=== PATIENT | female | born 1955 | race Caucasian/White ===

== ENCOUNTER 2017-01-12 20:25 | Inpatient (IN) | payer OTHER ==
[~2017-01-12] VITALS: Ht 160 cm; Wt 56.5 kg
[2017-01-12] MEDS ORDERED: ALBUT/IPRATROP 3MG/0.5MG NEB 3 ML VIAL INH STA (21:13)
[2017-01-12] MEDS ORDERED: LEVALBUTEROL 1.25MG/0.5ML NEB INH ONE (21:45)
[2017-01-12] MEDS ORDERED: IPRATROPIUM BROMIDE NEB SOLN 0.02% 2.5 ML VIAL INH ONE (21:45)
--- NOTE | 2017-01-12 21:48 | DIAGNOSTIC IMAGING REPORT ---
CHEST ONE VIEW PORTABLE CLINICAL HISTORY: shortness of breath COMPARISON STUDY: No previous studies for comparison. FINDINGS: The cardiac and mediastinal contours are normal. There is no evidence of focal pulmonary consolidation. There is no evidence of failure. No pleural effusions are visualized.[ IMPRESSION: No active disease in the chest. Electronically signed by: Clinton Cook M.D. 01/12/2017 9:46 PM Dictated Date/Time: 01/12/2017 9:46 PM
[2017-01-12 22:00] VITALS: PULSE 119; O2SAT 94
[2017-01-12 22:01] LABS: BASO % 0.4 %; BASO ABS # 0.05 K/uL (0-0.2); COMPLETE YES; HEMATOCRIT 44.9 % (37-47); IG% 0.2 %; LYMPH % 11.1 %; LYMPH ABS # 1.26 K/uL (1.2-3.4); MEAN CELL VOLUME 90.5 fL (80-100); MEAN CORPUSCULAR HEMOGLOBIN 30.2 pg (25-34); MEAN CORPUSCULAR HGB CONC 33.4 g/dl (32-36); MEAN PLATELET VOLUME 9.3 fL (7.4-10.4); MONO % 8.7 %; NEUT % 75.6 %; PLATELET COUNT 335 K/uL (130-400); RED BLOOD COUNT 4.96 M/uL (4.2-5.4); WHITE BLOOD COUNT 11.38 K/uL (4.8-10.8)
[2017-01-12] MEDS ORDERED: [UNRECOGNIZED DRUG - REMARK] PO (22:09)
[2017-01-12 22:17] LABS: ALT/SGPT 31 U/L (12-78); BLOOD UREA NITROGEN 13 mg/dl (7-18); BUN/CREATININE RATIO 13.7 (10-20); CARBON DIOXIDE 26 mmol/L (21-32); CHLORIDE 103 mmol/L (98-107); CREATININE 0.92 mg/dl (0.60-1.20); GLUCOSE 136 mg/dl (70-99); POTASSIUM 3.8 mmol/L (3.5-5.1); SODIUM 138 mmol/L (136-145)
--- NOTE | 2017-01-12 22:20 | EMERGENCY ROOM VISIT NOTE ---
History First contact with patient: 21:21 Chief Complaint: RESPIRATORY PROBLEMS Stated Complaint: SHORTNESS OF BREATH,SORE THROAT Nursing Triage Summary: Pt has had increase shortness of breath and dry cough since Saturday. Pt states she feels like it is bronchitis. Today has increased shortness of breath, wheezing throughout. Pt c/o sore throat History of Present Illness The patient is a 61 year old female who presents to the Emergency Room with complaints of shortness of breath. The patient reports that for the past 4-5 days, she has had shortness of breath, wheezing and nasal congestion. She has been taking ucya-aag-[id number] medications for her symptoms for the past 2 days. She is unsure if she has had fevers, but does state that she has had "hot flashes." She states that she had bronchitis 4 months ago and her symptoms now feels similar. She denies any cardiac history. She denies any history or family history of blood clots. She is not a smoker and denies any recent travel. She did not receive a flu vaccine this year. She denies any sick contacts. She denies any chest pain, abdominal pain, nausea, vomiting, headaches or neck pain. Review of Systems A complete 10-point Review of Systems was discussed with the patient, with pertinent positives and negatives listed in the History of Present Illness. All remaining Review of Systems questions can be considered negative unless otherwise specified. Past Medical/Surgical History Medical Problems: (1) Respiratory failure, acute Social History Smoking Status: Never Smoker Current/Historical Medications Scheduled PRN [Generic Cough/Cold], 1 TAB PO TID PRN for CONGESTION Allergies Coded Allergies: No Known Allergies (Unverified , 01/12/17) Physical Exam Vital Signs Date Time Temp Pulse Resp B/P Pulse Ox O2 Delivery O2 Flow Rate FiO2 01/13/17 01:09 132 01/13/17 01:02 145/78 01/13/17 00:30 127 18 93 01/13/17 00:14 143/82 01/13/17 00:08 131 18 145/83 94 Nasal Cannula 2.0 01/13/17 00:00 145/83 01/12/17 23:58 134 88 Room Air 01/12/17 23:30 144 17 93 01/12/17 23:02 106/63 01/12/17 23:02 148 106/63 99 Room Air 01/12/17 23:00 95/60 01/12/17 22:30 132 10 98 01/12/17 22:25 130 13 98 01/12/17 22:00 119 16 94 Room Air 01/12/17 22:00 140/97 01/12/17 21:28 132 01/12/17 21:18 93 Room Air 01/12/17 21:18 113 22 169/91 93 Room Air 01/12/17 21:12 169/91 01/12/17 21:09 93 Room Air 01/12/17 20:30 36.7 126 20 161/88 93 Room Air Physical Exam VITALS: Vitals are noted on the nurse's note and reviewed by myself. Vital signs stable. GENERAL: This is a 61-year-old female, in no acute distress, nondiaphoretic, well-developed well-nourished. SKIN: The skin was without rashes. EARS: External auditory canals clear, tympanic membranes pearly hernandez without erythema or effusion bilaterally. EYES: Pupils equal round and reactive to light and accommodation. NOSE: Patent, turbinates without inflammation or discharge. No sinus tenderness. MOUTH: Mucous membranes moist. Tonsils are not enlarged. Pharynx without erythema or exudate. NECK: Supple without nuchal rigidity. No lymphadenopathy. HEART: Tachycardic, regular rhythm without murmurs gallops or rubs. LUNGS: Diffuse expiratory wheezes throughout all bridges. No retractions or accessory muscle use. ABDOMEN: Positive bowel sounds x 4. Soft, nontender to palpation. NEURO: Patient was alert and oriented to person place and time. Medical Decision & Procedures ER Provider Diagnostic Interpretation: CHEST ONE VIEW PORTABLE CLINICAL HISTORY: shortness of breath COMPARISON STUDY: No previous studies for comparison. FINDINGS: The cardiac and mediastinal contours are normal. There is no evidence of focal pulmonary consolidation. There is no evidence of failure. No pleural effusions are visualized.[ IMPRESSION: No active disease in the chest. CTA CHEST: No filling defect to suggest a PE. No acute aortic abnormality. No consolidation or effusion. Radiologist: Saroj Hickey MD Laboratory Results Test 01/12/17 21:49 01/12/17 21:50 01/12/17 21:56 01/13/17 01:21 D-Dimer 920 ug/L FEU (0-500) Total Bilirubin 0.8 mg/dl (0.2-1) Aspartate Amino Transf (AST/SGOT) 18 U/L (15-37) Alanine Aminotransferase (ALT/SGPT) 31 U/L (12-78) Alkaline Phosphatase 108 U/L (45-117) Troponin I < 0.015 ng/ml (0-0.045) Total Protein 8.7 gm/dl (6.4-8.2) Albumin 4.1 gm/dl (3.4-5.0) Globulin 4.6 gm/dl (2.5-4.0) Albumin/Globulin Ratio 0.9 (0.9-2) Influenza Type A Antigen Neg for Influ A (NEG) Influenza Type B Antigen Neg for Influ B (NEG) Magnesium Level 2.0 mg/dl (1.8-2.4) Thyroid Stimulating Hormone (TSH) 1.770 uIu/ml (0.300-4.500) Medications Administered Medications (Trade) Dose Ordered Sig/Amnny Route Start Time Stop Time Status Last Admin Dose Admin Albuterol/ Ipratropium (Duoneb) 3 ml NOW STAT INH 01/12/17 21:13 01/12/17 21:16 DC 01/12/17 21:18 3 ML Levalbuterol (Xopenex 1.25MG/ 0.5ML Neb) 5 mg ONE ONCE INH 01/12/17 21:45 01/12/17 21:46 DC 01/12/17 21:57 5 MG Ipratropium [place] (Atrovent 0.02% 0.5MG/2.5ML Neb) 2 mg ONE ONCE INH 01/12/17 21:45 01/12/17 21:46 DC 01/12/17 21:57 2 MG Methylprednisolone Sodium Succinate 125 mg 125 mg NOW STAT IV 01/13/17 00:51 01/13/17 00:53 DC 01/13/17 01:18 125 MG Sodium Chloride (Nss 500ml) 500 ml @ 500 mls/hr Q1H STAT IV 01/13/17 00:51 01/13/17 01:50 DC 01/13/17 01:18 500 MLS/HR Levofloxacin (Levaquin / D5W) 750 mg NOW STAT IV 01/13/17 00:51 01/13/17 00:53 DC 01/13/17 01:18 750 MG Potassium Chloride (Klor-Con M10) 40 meq NOW STAT PO 01/13/17 01:22 01/13/17 01:44 DC 01/13/17 01:58 40 MEQ ECG Rate (beats per minute): 117 Rhythm: sinus tachycardia Findings: no acute ischemic change, no ectopy Comparison ECG Date: no prior available ED Course The patient was evaluated as above. Labs were drawn and IV access was obtained. Patient had been medicated with a DuoNeb treatment per nursing protocols prior to my evaluation. Patient was medicated with a levalbuterol treatment. Chest x-ray was performed and read by radiology as above. Patient was reevaluated and had little improvement. A CT scan was performed due to elevated d-dimer. Findings were discussed with the patient. The decision was made to admit the patient for evaluation. Case was discussed with the [facility] hospitalist, Dr. Dias. They agreed to evaluate the patient for admission. Medical Decision Differential diagnosis includes pneumonia, bronchitis, influenza, COPD exacerbation, pulmonary embolism, among others. The patient is a 61-year-old female who presents today complaining of respiratory symptoms. Labs revealed a mild leukocytosis. No concerning anemia or electrolyte abnormalities. Chest x-ray showed no evidence of pneumonia. D- dimer was found to be elevated. CTA showed no evidence of pulmonary embolism. The patient was given multiple breathing treatments and had no relief. She was persistently tachycardic and became hypoxic. She did require 2 L of oxygen via nasal cannula, which she does not use at home. The patient does not have a history of chronic lung disease. She appears to have an acute bronchitis but I do feel she will need admission for monitoring and treatment. She was given 125 mg Solu-Medrol and 750 milligrams Levaquin. Case was discussed with the hospitalist. The patient's case was reviewed with Dr. Macdonald, ED attending physician, who agreed with my assessment and treatment plan. Impression Primary Impression: Acute bronchitis Additional Impression: Hypoxia Departure Information Referrals No Doctor, Assigned (PCP) Patient Instructions [facility] Problem Qualifiers
[2017-01-12 22:21] LABS: ALB/GLOB RATIO 0.9 (0.9-2); ALKALINE PHOSPHATASE 108 U/L (45-117); AST/SGOT 18 U/L (15-37)
[2017-01-12 22:30] LABS: CALCIUM 10.4 mg/dl (8.5-10.1)
[2017-01-12] MEDS ORDERED: OPTIRAY 320 IV PRN (22:30)
[2017-01-13] VITALS (10 sets, daily range): BP systolic 139–194; BP diastolic 64–90; PULSE 73–138; TEMP 36.6–37.1; O2SAT 92–96; Ht 160 cm; Wt 56.5 kg
[2017-01-13] MEDS ORDERED: LEVAQUIN 750MG / 150ML D5W IV STA (00:51)
[2017-01-13] MEDS ORDERED: SODIUM CHLORIDE 0.9% 500ML 500 ML IV STA (00:51)
[2017-01-13] MEDS ORDERED: METHYLPREDNISOLONE 125 MG VIAL IV STA (00:51)
[2017-01-13] MEDS ORDERED: POTASSIUM CHLORIDE 10 MEQ TABCR PO STA (01:22)
[2017-01-13 01:55] LABS: THYROID STIMULATING HORMONE 1.77 uIu/ml (0.300-4.500)
[2017-01-13] MEDS ORDERED: ONDANSETRON INJ 2 MG/ML 2 ML VIAL IV PRN (02:00)
[2017-01-13] MEDS ORDERED: BENZONATATE 100MG CAP PO PRN (02:00)
[2017-01-13] MEDS ORDERED: TRAMADOL HCL 50 MG TAB PO PRN (02:00)
[2017-01-13] MEDS ORDERED: LORAZEPAM 2 MG/ML 1 ML VIAL IV PRN (02:00)
[2017-01-13] MEDS ORDERED: ACETAMINOPHEN 325 MG TAB PO PRN (02:00)
[2017-01-13] MEDS ORDERED: LEVALBUTEROL/IPRATROPIUM NEB INH PRN (02:00)
[2017-01-13] MEDS ORDERED: NITROGLYCERIN 0.4 MG SL PER TAB CHARGE SL PRN (02:00)
[2017-01-13 02:05] LABS: ARTERIAL BLD GAS O2 SATURATION 97.2 % (90-95); ARTERIAL BLOOD GAS BASE EXCESS -2.4 mEq/L (-9-1.8); ARTERIAL BLOOD GAS HCO3 21 mmol/L (19-24); ARTERIAL BLOOD GAS PO2 93 mm/Hg (80-95); ARTERIAL BLOOD GAS pH 7.44 (7.35-7.45)
[2017-01-13 02:06] LABS: ALLEN TEST POS (POS); O2 ADMINISTRATION 2L
[2017-01-13] MEDS ORDERED: IPRATROPIUM BROMIDE NEB SOLN 0.02% 2.5 ML VIAL INH PRN (02:15)
[2017-01-13] MEDS ORDERED: LEVALBUTEROL 1.25MG/0.5ML NEB INH PRN (02:15)
[2017-01-13] MEDS ORDERED: NSS + 20MEQ KCL 1000ML 1,000 ML IV ONE ×3 (02:30→06:00)
[2017-01-13] MEDS ORDERED: DOXYCYCLINE IV 100 MG in DEXTROSE 5% 100ML 100 ML IV ONE (02:39)
[2017-01-13] MEDS ORDERED: LORAZEPAM 2 MG/ML 1 ML VIAL IV STA (02:48)
[2017-01-13] MEDS ORDERED: LEVALBUTEROL 1.25MG/0.5ML NEB INH SCH (03:00)
[2017-01-13] MEDS ORDERED: IPRATROPIUM BROMIDE NEB SOLN 0.02% 2.5 ML VIAL INH SCH (03:00)
[2017-01-13] MEDS ORDERED: LEVALBUTEROL/IPRATROPIUM NEB INH SCH (03:00)
[2017-01-13] MEDS ORDERED: NSS + 20MEQ KCL 1000ML 1,000 ML IV SCH ×3 (03:00→07:30)
--- NOTE | 2017-01-13 03:56 | HISTORY & PHYSICAL EXAMINATION ---
DATE OF ADMISSION: 01/13/2017 Patient currently has no primary care doctor. Intends to follow up with Dr. Vik Melchor from [facility] upon discharge. Hx obtained from px and records. CHIEF COMPLAINT: Shortness of breath and cough. HISTORY OF PRESENT ILLNESS: No significant medical history. Last , px seen at urgent care center in [place] for complicated bronchitis. Improved w/ outpx Zpack and steroid course. A few days' history of cough symptoms; initially dry, later junky, productive of newman yellow sputum and increasing shortness of breath. She denies aspiration. She denies chest pain. No fever, chills. Unknown if she has sick contacts Patient was brought to the Emergency Room, Noted to be tachycardic subsequently hypoxemic. Px received Levaquin, Solu-Medrol and breathing treatments for bronchitis. MEDICAL HISTORY: As above. Has refused Pneumococcal and Influenza vaccination in the past. SURGERIES: bladder surgery as a child. HOME MEDICATIONS: Some cough preparations. ALLERGIES: No known drug allergies. FAMILY HISTORY: Heart disease. PERSONAL AND SOCIAL HISTORY: Nonsmoker. No chronic intake of alcoholic beverages. 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 REVIEW OF SYSTEMS: As per HPI, all other ROS negative. PHYSICAL EXAMINATION: VITAL SIGNS: Blood pressure was noted to be 165/78, pulse rate 130s, RR 22, temperature 36.7, sats were initially 93 on room air and later 88 on room air. GENERAL: Noted to be anxious and uncomfortable, in minimal respiratory distress. SKIN: Normal color. HEENT: Faison palpebral conjuctivae. Dry mucosa. nasal cannula in place NECK: No JVD. Supple. CHEST: occ expiratory wheeze HEART: Tachycardic. ABDOMEN: Soft. EXTREMITIES: No edema, no tenderness. NEUROLOGIC: No gross focality. LABORATORIES: Hemoglobin was noted to be 15, hematocrit 45.9, white cell count 11.38 and platelets 200 Sodium 137, K3.8 chloride 103, CO2 26, BUN 13, creatinine 0.9 and glucose of 136. Troponin was normal. CT chest initial read; no pulmonary embolism. EKG : sinus tachycardia. TIA ASSESSMENT: 1. Acute hypoxemic respiratory failure secondary to complicated bronchitis/ atypical pneumonia possible sepsis. 2. situational hypertension 2 to illness, anxiety. PLAN: PCU supplemental O2. Baseline ABG. CS, check lactic acid IVF Doxycycline for complicated bronchitis Nebs RTC, p.r.n. ff BP, anxiolytic prn DVT prophylaxis, Lovenox subQ. Full code. MTDD
[2017-01-13 05:22] LABS: BASO % 0.2 %; BASO ABS # 0.02 K/uL (0-0.2); COMPLETE YES; HEMATOCRIT 37.9 % (37-47); IG% 0.1 %; LYMPH % 1.9 %; LYMPH ABS # 0.19 K/uL (1.2-3.4); MEAN CELL VOLUME 91.3 fL (80-100); MEAN CORPUSCULAR HEMOGLOBIN 30.8 pg (25-34); MEAN CORPUSCULAR HGB CONC 33.8 g/dl (32-36); MEAN PLATELET VOLUME 9.3 fL (7.4-10.4); MONO % 1.5 %; NEUT % 96.3 %; PLATELET COUNT 267 K/uL (130-400); RED BLOOD COUNT 4.15 M/uL (4.2-5.4); WHITE BLOOD COUNT 10.01 K/uL (4.8-10.8)
[2017-01-13 05:42] LABS: BUN/CREATININE RATIO 11.9 (10-20); CALCIUM 9.2 mg/dl (8.5-10.1)
[2017-01-13 06:40] LABS: PROTHROMBIN TIME (PATIENT) 11.2 SECONDS (9.0-12.0)
--- NOTE | 2017-01-13 07:27 | DIAGNOSTIC IMAGING REPORT ---
CHEST CTA for PULMONARY ARTERIES CT DOSE: 191.59 mGy.cm HISTORY: Short of breath. TECHNIQUE: Multiaxial CT images of the chest were performed following the intravenous administration of contrast to evaluate the pulmonary arteries. Maximal intensity projection images were also obtained. COMPARISON STUDY: None. FINDINGS: There is a normal caliber thoracic aorta with no evidence for dissection. There is no evidence for pulmonary embolus. No pleural effusions. No pneumothorax. The liver and spleen are unremarkable. No mediastinal or hilar lymphadenopathy. The central airways are patent. The lungs are clear. IMPRESSION: No evidence for pulmonary embolus. Electronically signed by: Prince Mckay M.D. 01/13/2017 7:25 AM Dictated Date/Time: 01/13/2017 7:20 AM
[2017-01-13] MEDS: LEVALBUTEROL 1.25MG/0.5ML NEB INH SCH ×3 (07:53→19:32)
[2017-01-13] MEDS: IPRATROPIUM BROMIDE NEB SOLN 0.02% 2.5 ML VIAL INH SCH ×3 (07:53→19:32)
[2017-01-13] MEDS: SODIUM CHLORIDE 0.9% 1000ML 1,000 ML IV SCH ×3 (08:00→17:05)
[2017-01-13] MEDS: ENOXAPARIN 40 MG/0.4 ML SYR SC SCH (08:01)
[2017-01-13] MEDS ORDERED: DOXYCYCLINE HYCLATE 100 MG CAP PO SCH (09:00)
--- NOTE | 2017-01-13 10:08 | Progress Note ---
Internal Med Progress Note Date of Service: Jan 13, 2017. Provider Documentation: SUBJECTIVE: Patient is feeling much better today. SOB has improved, cough- mild sputum - improving. Mild wheezing + No chest pain, fever, chills, nausea, vomiting, abdominal pain, diarrhea. Off oxygen OBJECTIVE: Vital Signs-as noted below Exam: General-AAOX3, anxious + no distress Neck-No accessory muscles use Lungs-AEBE decreased, good air entry though, wheezing + bilaterally- improved Heart-Sinus tachycardia, No murmurs Abdomen-Soft, non tender, non distended, BS present Extremities-No edema Lab data as noted below. ASSESSMENT & PLAN: ASSESSMENT AND PLAN : HYPOXIA- Resolved -Likely secondary to bronchitis -Off oxygen now, on RA ACUTE BRONCHITIS -Clinically much better, Afebrile, no leucocytosis. No prior hx of COPD/Asthma/ Smoking/Chronic lung dz -Mild wheezing on exam today -Nebs, Doxycycline, Will add a short course of steroids- medrol dose pack -CXR/CT scan chest- No active disease=- no pneumonia, chf or PE; ABGs- resp alkalosis SINUS TACHYCARDIA -Likely secondary to bronchitis/nebs -Monitor ELEVATED BP -Likely situational/anxiety related -Will monitor closely DVT prophylaxis, Lovenox subQ. FULL CODE DISPOSITION Monitor on telemetry due to sinus tachycardia. Vital Signs: Date Time Temp Pulse Resp B/P Pulse Ox O2 Delivery O2 Flow Rate FiO2 01/13/17 08:07 36.7 122 16 154/76 93 01/13/17 08:00 Room Air 01/13/17 07:45 112 16 94 Room Air 01/13/17 04:55 139/64 01/13/17 04:00 Room Air 01/13/17 02:28 36.7 138 16 194/88 Room Air 01/13/17 02:00 36.7 130 23 145/78 93 01/13/17 01:30 130 23 93 Nasal Cannula 2.0 01/13/17 01:09 132 01/13/17 01:02 145/78 01/13/17 00:30 127 18 93 01/13/17 00:14 143/82 01/13/17 00:08 131 18 145/83 94 Nasal Cannula 2.0 01/13/17 00:00 145/83 01/12/17 23:58 134 88 Room Air 01/12/17 23:30 144 17 93 4/22/17 23:02 106/63 01/12/17 23:02 148 106/63 99 Room Air 01/12/17 23:00 95/60 01/12/17 22:30 132 10 98 01/12/17 22:25 130 13 98 01/12/17 22:00 119 16 94 Room Air 01/12/17 22:00 140/97 01/12/17 21:28 132 01/12/17 21:18 93 Room Air 01/12/17 21:18 113 22 169/91 93 Room Air 01/12/17 21:12 169/91 01/12/17 21:09 93 Room Air 01/12/17 20:30 36.7 126 20 161/88 93 Room Air Lab Results: Results Past 24 Hours Test 01/12/17 21:49 01/12/17 21:50 01/12/17 21:56 01/13/17 01:43 Range/Units White Blood Count 11.38 4.8-10.8 K/uL Red Blood Count 4.96 4.2-5.4 M/uL Hemoglobin 15.0 12.0-16.0 g/dL Hematocrit 44.9 37-47 % Mean Corpuscular Volume 90.5 80-100 fL Mean Corpuscular Hemoglobin 30.2 25-34 pg Mean Corpuscular Hemoglobin Concent 33.4 32-36 g/dl Platelet Count 335 130-400 K/uL Mean Platelet Volume 9.3 7.4-10.4 fL Neutrophils (%) (Auto) 75.6 % Lymphocytes (%) (Auto) 11.1 % Monocytes (%) (Auto) 8.7 % Eosinophils (%) (Auto) 4.0 % Basophils (%) (Auto) 0.4 % Neutrophils # (Auto) 8.60 1.4-6.5 K/uL Lymphocytes # (Auto) 1.26 1.2-3.4 K/uL Monocytes # (Auto) 0.99 0.11-0.59 K/uL Eosinophils # (Auto) 0.46 0-0.5 K/uL Basophils # (Auto) 0.05 0-0.2 K/uL RDW Standard Deviation 43.6 36.4-46.3 fL RDW Coefficient of Variation 13.3 11.5-14.5 % Immature Granulocyte % (Auto) 0.2 % Immature Granulocyte # (Auto) 0.02 0.00-0.02 K/uL D-Dimer 920 0-500 ug/L FEU Sodium Level 138 136-145 mmol/L Potassium Level 3.8 3.5-5.1 mmol/L Chloride Level 103 98-107 mmol/L Carbon Dioxide Level 26 21-32 mmol/L Anion Gap 9.0 3-11 mmol/L Blood Urea Nitrogen 13 7-18 mg/dl Creatinine 0.92 0.60-1.20 mg/dl Est Creatinine Clear Calc Drug Dose 53.1 ml/min Estimated GFR () 77.9 Estimated GFR (Non- 67.2 BUN/Creatinine Ratio 13.7 10-20 Random Glucose 136 70-99 mg/dl Calcium Level 10.4 8.5-10.1 mg/dl Total Bilirubin 0.8 0.2-1 mg/dl Aspartate Amino Transf (AST/SGOT) 18 15-37 U/L Alanine Aminotransferase (ALT/SGPT) 31 12-78 U/L Alkaline Phosphatase 108 45-117 U/L Troponin I < 0.015 0-0.045 ng/ml Total Protein 8.7 6.4-8.2 gm/dl Albumin 4.1 3.4-5.0 gm/dl Globulin 4.6 2.5-4.0 gm/dl Albumin/Globulin Ratio 0.9 0.9-2 Influenza Type A Antigen Neg for Influ A NEG Influenza Type B Antigen Neg for Influ B NEG Magnesium Level 2.0 1.8-2.4 mg/dl Thyroid Stimulating Hormone (TSH) 1.770 0.300-4.500 uIu/ml Lactic Acid Level 3.3 0.4-2.0 mmol/L Test 01/13/17 01:52 01/13/17 05:09 01/13/17 09:45 Range/Units Arterial Blood pH 7.44 7.35-7.45 Arterial Blood Partial Pressure CO2 32 35-46 mmHg Arterial Blood Partial Pressure O2 93 80-95 mm/Hg Arterial Blood HCO3 21 19-24 mmol/L Arterial Blood Oxygen Saturation 97.2 90-95 % Arterial Blood Base Excess -2.4 -9-1.8 mEq/L Arterial Blood Gas Delivery 2L Jacky Test POS POS White Blood Count 10.01 4.8-10.8 K/uL Red Blood Count 4.15 4.2-5.4 M/uL Hemoglobin 12.8 12.0-16.0 g/dL Hematocrit 37.9 37-47 % Mean Corpuscular Volume 91.3 80-100 fL Mean Corpuscular Hemoglobin 30.8 25-34 pg Mean Corpuscular Hemoglobin Concent 33.8 32-36 g/dl Platelet Count 267 130-400 K/uL Mean Platelet Volume 9.3 7.4-10.4 fL Neutrophils (%) (Auto) 96.3 % Lymphocytes (%) (Auto) 1.9 % Monocytes (%) (Auto) 1.5 % Eosinophils (%) (Auto) 0.0 % Basophils (%) (Auto) 0.2 % Neutrophils # (Auto) 9.64 1.4-6.5 K/uL Lymphocytes # (Auto) 0.19 1.2-3.4 K/uL Monocytes # (Auto) 0.15 0.11-0.59 K/uL Eosinophils # (Auto) 0.00 0-0.5 K/uL Basophils # (Auto) 0.02 0-0.2 K/uL RDW Standard Deviation 46.0 36.4-46.3 fL RDW Coefficient of Variation 13.7 11.5-14.5 % Immature Granulocyte % (Auto) 0.1 % Immature Granulocyte # (Auto) 0.01 0.00-0.02 K/uL Prothrombin Time 11.2 9.0-12.0 SECONDS Prothromb Time International Ratio 1.0 0.9-1.1 Sodium Level 141 136-145 mmol/L Potassium Level 4.0 3.5-5.1 mmol/L Chloride Level 108 98-107 mmol/L Carbon Dioxide Level 22 21-32 mmol/L Anion Gap 11.0 3-11 mmol/L Blood Urea Nitrogen 12 7-18 mg/dl Creatinine 1.00 0.60-1.20 mg/dl Est Creatinine Clear Calc Drug Dose 48.9 ml/min Estimated GFR () 70.4 Estimated GFR (Non- 60.8 BUN/Creatinine Ratio 11.9 10-20 Random Glucose 196 70-99 mg/dl Lactic Acid Level 3.9 0.4-2.0 mmol/L Calcium Level 9.2 8.5-10.1 mg/dl Hepatitis C Antibody Screen NEG NEG Microbiology Results 01/13/17 Blood Culture, Received Pending 01/13/17 Blood Culture, Received Pending
[2017-01-13 11:57] LABS: INFLUENZA A PCR Neg for Influ A (NEG); INFLUENZA B PCR Neg for Influ B (NEG)
[2017-01-13] MEDS ORDERED: METHYLPREDNISOLONE 4MG TAB, 6 DAY TAPER PO SCH (12:15)
[2017-01-13] MEDS ORDERED: METHYLPREDNISOLONE 4 MG TAB PO ONE (12:30)
[2017-01-13 16:17] LABS: URINE APPEARANCE CLEAR (CLEAR); URINE BILIRUBIN NEG (NEG); URINE COLOR YELLOW; URINE NITRITE NEG (NEG); URINE SPECIFIC GRAVITY 1.007 (1.000-1.030); UROBILINOGEN NEG (NEG); ZZUR CULT IF INDIC CLEAN CATCH NO
[2017-01-13 16:23] LABS: MANUAL MICROSCOPIC REQUIRED? NO; REVIEW REQ? NO
[2017-01-13] MEDS ORDERED: METHYLPREDNISOLONE 4 MG TAB PO SCH ×2 (18:00→21:00)
[2017-01-13] MEDS ORDERED: DOXYCYCLINE IV 100 MG in DEXTROSE 5% 100ML 100 ML IV SCH (21:00)
[2017-01-13] MEDS: DOXYCYCLINE HYCLATE 100 MG CAP PO SCH (21:02)
[2017-01-14] VITALS (9 sets, daily range): BP systolic 150–171; BP diastolic 78–90; PULSE 83–120; TEMP 36.7–36.9; O2SAT 91–96
[2017-01-14] MEDS: LEVALBUTEROL 1.25MG/0.5ML NEB INH SCH ×2 (02:02→07:16)
[2017-01-14] MEDS: IPRATROPIUM BROMIDE NEB SOLN 0.02% 2.5 ML VIAL INH SCH ×2 (02:02→07:16)
[2017-01-14 05:52] LABS: ESTIMATED AVERAGE GLUCOSE 120 mg/dl; HA1C FLAG Normal (Normal)
[2017-01-14] MEDS: METHYLPREDNISOLONE 4 MG TAB PO SCH ×2 (07:35→12:22)
[2017-01-14] MEDS: DOXYCYCLINE HYCLATE 100 MG CAP PO SCH (08:08)
[2017-01-14] MEDS: ENOXAPARIN 40 MG/0.4 ML SYR SC SCH (08:08)
--- NOTE | 2017-01-14 10:53 | Progress Note ---
Internal Med Progress Note Date of Service: Jan 14, 2017. Provider Documentation: SUBJECTIVE: Patient is feeling much better today. SOB has improved, cough- mild sputum - improved No chest pain, fever, chills, nausea, vomiting, abdominal pain, diarrhea. Tolerating ambulation well. Eager to be discharged. Off oxygen Tele- Sinus tachycardia with max rate 127 and otherwise 90-110s OBJECTIVE: Vital Signs-as noted below Exam: General-AAOX3, anxious + no distress Neck-No accessory muscles use Lungs-AEBE decreased, good air entry though, wheezing + bilaterally- improved Heart-Sinus tachycardia, No murmurs Abdomen-Soft, non tender, non distended, BS present Extremities-No edema Lab data as noted below. ASSESSMENT & PLAN: ASSESSMENT AND PLAN : ACUTE BRONCHITIS- Improved -Clinically much better, Afebrile, no leucocytosis. No prior hx of COPD/Asthma/ Smoking/Chronic lung dz -Tolerating ambulation well. -Nebs, Doxycycline (10/30), short course of steroids- prednisone taper -CXR/CT scan chest- No active disease=- no pneumonia, chf or PE; ABGs- resp alkalosis HYPOXIA- Resolved -Likely secondary to bronchitis -Off oxygen now, on RA SINUS TACHYCARDIA -Likely secondary to bronchitis/nebs; Anxiety contributing -Max HR 120s, but mainly in 90-110s. No prior hx of tachycardia, no palpitations , syncope. IV fluids received- well hydrated, no signs of any new infection -Tele- sinus tachy, EKG- Sinus tachy -As needs to be started on BP med- will start atenolol 25 mg which will help both HR/BP -Monitor ELEVATED BP -Anxiety contributing -But persistent elevation > 150s with SBP going up to 190s -Will start low dose atenolol as above- 25 mg daily -Monitor DVT prophylaxis, Lovenox subQ. FULL CODE DISPOSITION Possible discharge today evening Vital Signs: Date Time Temp Pulse Resp B/P Pulse Ox O2 Delivery O2 Flow Rate FiO2 01/14/17 08:00 Room Air 01/14/17 07:24 36.7 108 19 150/79 94 Room Air 01/14/17 07:16 91 14 95 Room Air 01/14/17 04:00 Room Air 01/14/17 03:21 36.7 117 18 166/83 93 Room Air 01/14/17 02:02 105 14 96 Room Air 01/14/17 00:00 Room Air 01/13/17 23:35 37.1 112 17 159/90 95 Room Air 01/13/17 20:00 Room Air 01/13/17 19:57 37.0 110 16 154/79 92 Room Air 01/13/17 19:32 115 16 94 Room Air 01/13/17 16:45 36.8 119 20 157/76 93 Room Air 01/13/17 16:00 Room Air 01/13/17 14:21 109 16 96 Room Air 01/13/17 12:13 36.6 73 16 145/78 96 Room Air 01/13/17 12:00 Room Air Lab Results: Results Past 24 Hours Test 01/13/17 12:31 Range/Units Lactic Acid Level 2.5 0.4-2.0 mmol/L Microbiology Results 01/13/17 Gram Stain - Final, Resulted 01/13/17 Sputum Culture, Resulted Pending
[2017-01-14] MEDS ORDERED: IPRATROPIUM BROMIDE NEB SOLN 0.02% 2.5 ML VIAL INH PRN (15:00)
[2017-01-14] MEDS ORDERED: LEVALBUTEROL 1.25MG/0.5ML NEB INH PRN (15:00)
[2017-01-14] MEDS ORDERED: PRED10TA PO (16:10)
[2017-01-14] MEDS ORDERED: DXY100 PO (16:10)
[2017-01-14] MEDS ORDERED: PRLSR20 PO (16:10)
[2017-01-14] MEDS ORDERED: TNR25 PO (16:10)
[2017-01-14] MEDS ORDERED: VNTHFA/IN INH (16:10)
--- NOTE | 2017-01-14 16:15 | Discharge Summary ---
Discharge Summary Date of Service Jan 14, 2017. Discharge Summary Admission Date: Jan 13, 2017 at 01:25 Discharge Date: Jan 14, 2017 Discharge Disposition: Home Principal Diagnosis: 1. Acute bronchitis 2. HTN, newly diagnosed 3. Sinus tachycardia, likely secondary to nebs, bronchitis, anxiety 4. Anxiety Procedures: Tele monitoring CXR Nebs Oxygen Steroids Antibiotics Consultations: None Pending Studies/Follow-Up: Instructions / Follow-Up Instructions / Follow-Up MEDICATION CHANGES: 1. New medication: Prednisone 30 mg daily x 3 days f/b 20 mg daily x 3 days f/b 10 mg daily x 3 days and than discontinue 2. New medication: Omeprazole 20 mg daily for acidity while you are on steroids and than you can discontinue 3. New medication: Albuterol inhaler 2 puffs q 6 hours as needed for wheezing - only to be used for few days. You do not have any chronic lung issues for which you would require this more often 4. New medication: Doxycycline 100 mg pO BID x 5 more days to complete 7 days course for bronchitis. Avoid sun exposure while on doxycycline 5. New medication: Atenolol 25 mg daily for increased BP/HR. Low salt diet recommended MONITOR 1. BP /HR outpatient as newly started on Atenolol FOLLOW UP 1. Follow up with Dr Sims 01/18/17 at 12:45 PM Medication Reconciliation New Medications: Albuterol Hfa (Ventolin Hfa) 200 Puffs/[id number] Mcg Aers 2-4 PUFFS INH Q6H for sob/wheezing, #1 INHALER Omeprazole (Prilosec) 20 Mg Capcr 20 MG PO DAILY for 30 Days, #30 CAP Prednisone Tab (Prednisone) 10 Mg Tab 10 MG PO UD for 30 Days, #20 TAB Take 30 mg daily x 3 days f/b 20 mg daily x 3 days f/b 10 mg daily x 3 days and than discontinue Atenolol (Atenolol) 25 Mg Tab 25 MG PO DAILY for 30 Days, #30 TAB Doxycycline Hyclate (Doxycycline Hyclate) 100 Mg Cap 100 MG PO BID for 5 Days, #10 CAP Continued Medications: [Generic Cough/Cold] () 1 TAB PO TID PRN for CONGESTION Admission Information HPI (per Admitting provider): HISTORY OF PRESENT ILLNESS: No significant medical history. Last , px seen at urgent care center in [place] for complicated bronchitis. Improved w/ outpx Zpack and steroid course. A few days' history of cough symptoms; initially dry, later junky, productive of newman yellow sputum and increasing shortness of breath. She denies aspiration. She denies chest pain. No fever, chills. Unknown if she has sick contacts Patient was brought to the Emergency Room, Noted to be tachycardic subsequently hypoxemic. Px received Levaquin, Solu-Medrol and breathing treatments for bronchitis. Hospital Course ASSESSMENT AND PLAN : ACUTE BRONCHITIS- Improved -Clinically much better, Afebrile, no leucocytosis. No prior hx of COPD/Asthma/ Smoking/Chronic lung dz -Tolerating ambulation well. -Nebs, Doxycycline (10/30), short course of steroids- prednisone taper -CXR/CT scan chest- No active disease=- no pneumonia, chf or PE; ABGs- resp alkalosis HYPOXIA- Resolved -Likely secondary to bronchitis -Off oxygen now, on RA SINUS TACHYCARDIA- Improved, down to 80s , 100 while ambulating -Likely secondary to bronchitis/nebs; Anxiety contributing -Max HR 120s, but mainly in 90-110s. No prior hx of tachycardia, no palpitations , syncope. IV fluids received- well hydrated, no signs of any new infection -Tele- sinus tachy, EKG- Sinus tachy -As needs to be started on BP med- will start atenolol 25 mg which will help both HR/BP -Monitor outpatient ELEVATED BP, Newly diagnosed with HTN -Anxiety contributing -But persistent elevation > 150s with SBP going up to 190s at times -Started low dose atenolol as above- 25 mg daily -Monitor outpatient with new medication DVT prophylaxis, Lovenox subQ. FULL CODE DISPOSITION Eager to be discharged Okay to discharge home Total time spent on discharge = This includes examination of the patient, discharge planning, medication reconciliation, and communication with other providers. Discharge Instructions Activity Recommendations Activity Limitations: resume your previous activity . Instructions / Follow-Up Instructions / Follow-Up MEDICATION CHANGES: 1. New medication: Prednisone 30 mg daily x 3 days f/b 20 mg daily x 3 days f/b 10 mg daily x 3 days and than discontinue 2. New medication: Omeprazole 20 mg daily for acidity while you are on steroids and than you can discontinue 3. New medication: Albuterol inhaler 2 puffs q 6 hours as needed for wheezing - only to be used for few days. You do not have any chronic lung issues for which you would require this more often 4. New medication: Doxycycline 100 mg pO BID x 5 more days to complete 7 days course for bronchitis. Avoid sun exposure while on doxycycline 5. New medication: Atenolol 25 mg daily for increased BP/HR. Low salt diet recommended MONITOR 1. BP /HR outpatient as newly started on Atenolol FOLLOW UP 1. Follow up with Dr Sims 01/18/17 at 12:45 PM Current Hospital Diet Patient's current hospital diet: AHA Diet (Heart Healthy), Low Lactose Diet Discharge Diet Recommended Diet: AHA Diet (Heart Healthy), Low Lactose Diet Pending Studies Studies pending at discharge: no Laboratory Results Hemoglobin A1c Test 01/13/17 05:09 Range/Units Estimated Average Glucose 120 mg/dl Hemoglobin A1c 5.8 H 4.5-5.6 % Medical Emergencies . Who to Call and When: Medical Emergencies: If at any time you feel your situation is an emergency, please call 911 immediately. . Non-Emergent Contact Non-Emergency issues call your: Primary Care Provider . . "Provider Documentation" section prepared by Ainsley Long. . VTE Core Measure Inpt VTE Proph given/why not?: Chauncey Ochoa, BETO's
[2017-01-14] MEDS ORDERED: METHYLPREDNISOLONE 4 MG TAB PO SCH (21:00)
[2017-01-15] MEDS ORDERED: METHYLPREDNISOLONE 4 MG TAB PO SCH (07:00)
[2017-01-16] MEDS ORDERED: METHYLPREDNISOLONE 4 MG TAB PO SCH (07:00)
[2017-01-17] MEDS ORDERED: METHYLPREDNISOLONE 4 MG TAB PO SCH (07:00)
[2017-01-18] MEDS ORDERED: METHYLPREDNISOLONE 4 MG TAB PO SCH (07:00)
== END 2017-01-14 18:06 | disposition home or self-care (01) | DRG 202 ==
LOC: ENRESERVDT → ENRESERVTM → C.EDB 20:29 → C.2T 01-13 01:25
PROVIDERS: ADMIT Internal Medicine; ATTEND Internal Medicine
DX: J20.9 Acute bronchitis, unspecified (principal); E87.3 Alkalosis; R00.0 Tachycardia, unspecified; F41.9 Anxiety disorder, unspecified; I10 Essential (primary) hypertension; R09.02 Hypoxemia; Z82.49 Family history of ischemic heart disease and other diseases of the circulatory system

== ENCOUNTER 2020-10-30 17:09 | Observation (INO) ==
[2020-10-30] MEDS ORDERED: NITROGLYCERIN 2% OINTMENT 30GM TUBE EXT STA (17:26)
[2020-10-30] MEDS ORDERED: ASPIRIN CHEW 324 MG PO STA (17:26)
--- NOTE | 2020-10-30 17:33 | Emergency Department Note ---
History of Present Illness General Chief complaint: Cardiac Assessment Stated complaint: chest pain Time Seen by Provider: 10/30/20 17:17 Source: patient History of Present Illness Provider complaint: Chest pain Onset (ago): week(s) 1 Location: chest Radiation: non-radiation Pain Consistency: + constant Maximum Pain Intensity: 7 Quality: + aching, + dull and + other (Squeezing) Relieved By: + none Exacerbated By: + none Associated symptoms: + cough; no diaphoresis, no fever/chills, no headaches, no nausea/vomiting and no shortness of breath This is a 64-year-old female who presents with chest pain for the past week. The patient states that the pain has been constant and unremitting. She states that she has it when she goes to bed and has it when she wakes up in the morning. It is constant throughout the day as well. She denies any alleviating factors and states that position, exertion or eating does not affected in any way. She describes it as a squeezing in the middle of her chest. It first started shortly after she was playing with her 4-year-old grandson. She stated was initially bad at first but has since been very mild. She stated initially felt like a squeezing which lasted 2 hours. Now it is a dull ache. She did not come in a week ago when it started because of the snowstorm. She did go to the urgent care center today who advised her to come here for further evaluation. He denies any history of cardiac disease. She previously was treated for hypertension but states that she has been since taken off of that medication. She does have a history of high cholesterol. She denies any fever, shortness of breath, diaphoresis, weakness, abdominal pain, vomiting, diarrhea, known Covid exposure, loss of taste or smell or leg swelling or pain. The patient stated that 3 days prior to developing the chest pain she had what she described as a chest cold. She was not really coughing but had the sensation that there was s omething in her chest and when she forced herself to cough she had some brown sputum at times. She states the chest cold symptoms have now resolved. Home Medications Medication Instructions Recorded Confirmed Type cholecalciferol (vitamin D3) 25 mcg PO DAILY 10/30/20 10/30/20 History [Vitamin D3] [id number]-gwom-FA-lutein 1 tab PO DAILY 10/30/20 10/30/20 History [Multivitamin Women 50 Plus] Allergies Allergy/AdvReac Type Severity Reaction Status Date / Time tree and shrub pollen Allergy Intermediate sneezing/itchy Verified 10/30/20 18:46 watery eyes lillies Allergy Intermediate sneezing/itchy Uncoded 10/30/20 18:46 watery eyes Past Med/Surg History Medical History (Updated 10/31/20 @ 00:21 by Yovanny Hartley MD) Chronic bronchitis Hypertension Kidney infection Respiratory failure, acute Surgical History History of bladder surgery Social History Smoking Status: Never smoker Hx Alcohol Use: No Hx Substance Use: No Preferred Language: Maltese Communication Ability: Effective 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 and A total of 10 systems reviewed and were otherwise negative Physical Exam Vital Signs Vital Signs - 24 hr 10/30/20 17:12 10/30/20 17:19 10/30/20 17:25 Temperature 36.6 C Temperature Source Oral Pulse Rate 101 H 76 Pulse Rate [Apical] Pulse Rate from SpO2 Sensor Respiratory Rate 16 12 Respiratory Effort / Characteristics Respiratory Depth Blood Pressure 209/111 H 194/81 H Blood Pressure [Left Arm] Blood Pressure Mean 143 118 Blood Pressure Mean [Left Arm] Pulse Oximetry 97 Oxygen Delivery Method Room Air Room Air Sepsis Recent Fever Within 48 Hours No Sepsis New/Unexplained Change in Mental Status N/A Sepsis Action Taken by Nursing No Action Required 10/30/20 17:29 10/30/20 17:30 10/30/20 18:00 Temperature Temperature Source Pulse Rate 63 96 H Pulse Rate [Apical] Pulse Rate from SpO2 Sensor 94 H Respiratory Rate 15 15 Respiratory Effort / Characteristics Respiratory Depth Blood Pressure 177/102 H 153/94 H Blood Pressure [Left Arm] Blood Pressure Mean 127 113 Blood Pressure Mean [Left Arm] Pulse Oximetry 99 98 99 Oxygen Delivery Method Room Air Sepsis Recent Fever Within 48 Hours Sepsis New/Unexplained Change in Mental Status Sepsis Action Taken by Nursing 10/30/20 18:01 10/30/20 19:00 10/30/20 19:53 Temperature Temperature Source Pulse Rate 86 Pulse Rate [Apical] 62 65 Pulse Rate from SpO2 Sensor 81 Respiratory Rate 16 16 18 Respiratory Effort / Characteristics Non-Labored Spontaneous Non-Labored Spontaneous Respiratory Depth Normal Normal Blood Pressure Blood Pressure [Left Arm] 160/88 H 134/81 Blood Pressure Mean Blood Pressure Mean [Left Arm] 112 98 Pulse Oximetry 97 98 95 Oxygen Delivery Method Room Air Sepsis Recent Fever Within 48 Hours Sepsis New/Unexplained Change in Mental Status Sepsis Action Taken by Nursing Constitutional: Vital signs reviewed. Eyes: Pupils are equal round reactive to light. Conjunctiva are noninjected. ENT: Pharynx is clear without erythema or exudate. Mucous membranes are moist. Neck supple without meningeal signs. Respiratory: Clear to auscultation bilaterally. Breath sounds are equal bilaterally. Cardiovascular: Regular rate and rhythm. No rubs or gallops. GI: Soft, nondistended and nontender. Bowel sounds are present. Musculoskeletal: No peripheral edema. No lower extremity tenderness. Integumentary: No cyanosis. or jaundice. Neurological: The patient is awake and alert. No focal deficits. Psychiatric: Very anxious. Course Administered Medications Discontinued Medications Aspirin (Aspirin Chew 324 Mg) 324 mg PO NOW STA Stop: 10/30/20 17:27 Last Admin: 10/30/20 17:37 Dose: 324 mg Documented by: [id number] Morphine Sulfate (Morphine Sulfate 2 Mg/Ml Carp) 2 mg IV NOW STA Stop: 10/30/20 18:22 Last Admin: 10/30/20 18:59 Dose: 2 mg Documented by: [id number] Nitroglycerin (Nitroglycerin 2% Ointment 30gm Tube) 0.5 inch EXT NOW STA Stop: 10/30/20 17:27 Last Admin: 10/30/20 17:37 Dose: 0.5 inch Documented by: [id number] Ondansetron HCl (Ondansetron Inj 2 Mg/Ml 2 Ml Vial) 4 mg IV NOW STA Stop: 10/30/20 18:22 Last Admin: 10/30/20 18:59 Dose: 4 mg Documented by: [id number] Medical Decision Making Differential Diagnosis Unstable angina, NC, pleurisy, pneumonia, pericarditis Medical Records Attestation: I reviewed the patient's medical records. I did perform a limited focused review of portions of the patient's old chart on the electronic medical record. The patient has had no recent pertinent visits to this hospital. Home Medications Current Medication List: was personally reviewed by me Laboratory Data Attestation: I reviewed the patient's lab results. Result diagrams: 10/30/20 17:34 10/30/20 17:34 Lab Results 10/30/20 10/30/20 10/30/20 Range/Units 17:34 17:34 18:30 WBC 5.64 (4.8-10.8) K/uL RBC 4.33 (4.2-5.4) M/uL Hgb 13.8 (12.0-16.0) g/dL Hct 39.9 (37-47) % MCV 92.1 (80-100) fL MCH 31.9 (25-34) pg MCHC 34.6 (32-36) g/dL RDW Std Deviation 44.0 (36.4-46.3) fL RDW Coeff of Shannan 12.9 (11.5-14.5) % Plt Count 339 (130-400) K/uL MPV 9.6 (7.4-10.4) fL Immature Gran % (Auto) 0.2 % Neut % (Auto) 60.7 % Lymph % (Auto) 24.6 % [place] % (Auto) 11.9 % Eos % (Auto) 2.1 % Baso % (Auto) 0.5 % Neut # (Auto) 3.42 (1.4-6.5) K/uL Lymph # (Auto) 1.39 (1.2-3.4) K/uL [place] # (Auto) 0.67 H (0.11-0.59) K/uL Eos # (Auto) 0.12 (0-0.5) K/uL Baso # (Auto) 0.03 (0-0.2) K/uL Immature Gran # (Auto) 0.01 (0.00-0.02) K/uL Sodium 142 (136-145) mmol/L Potassium 3.7 (3.5-5.1) mmol/L Chloride 106 (98-107) mmol/L Carbon Dioxide 28 (21-32) mmol/L Anion Gap 8.0 (3-11) BUN 17 (7-18) mg/dl Creatinine 0.80 (0.6-1.2) mg/dl Est Cr Clr Drug Dosing 56.2 ml/min Est GFR ( Amer) 90.3 Est GFR (Non-Af Amer) 77.9 BUN/Creatinine Ratio 20.9 H (10-20) Glucose 105 H (70-99) mg/dl Calcium 9.5 (8.5-10.1) mg/dl Total Bilirubin 0.4 (0.2-1) mg/dl AST 17 (15-37) U/L ALT 31 (12-78) U/L Alkaline Phosphatase 82 (45-117) U/L Troponin I < 0.015 (0-0.045) ng/ml Total Protein 8.1 (6.4-8.2) gm/dl Albumin 3.9 (3.4-5.0) gm/dl Globulin 4.2 H (2.5-4.0) gm/dl Albumin/Globulin Ratio 0.9 (0.9-2) Lipase 186 (73-393) U/L COVID-19 Eval Order Covid19 [facility] SARS-CoV-2, RNA, NAAT (NEGATIVE) 10/30/20 Range/Units 18:30 WBC (4.8-10.8) K/uL RBC (4.2-5.4) M/uL Hgb (12.0-16.0) g/dL Hct (37-47) % MCV (80-100) fL MCH (25-34) pg MCHC (32-36) g/dL RDW Std Deviation (36.4-46.3) fL RDW Coeff of Shannan (11.5-14.5) % Plt Count (130-400) K/uL MPV (7.4-10.4) fL Immature Gran % (Auto) % Neut % (Auto) % Lymph % (Auto) % [place] % (Auto) % Eos % (Auto) % Baso % (Auto) % Neut # (Auto) (1.4-6.5) K/uL Lymph # (Auto) (1.2-3.4) K/uL [place] # (Auto) (0.11-0.59) K/uL Eos # (Auto) (0-0.5) K/uL Baso # (Auto) (0-0.2) K/uL Immature Gran # (Auto) (0.00-0.02) K/uL Sodium (136-145) mmol/L Potassium (3.5-5.1) mmol/L Chloride (98-107) mmol/L Carbon Dioxide (21-32) mmol/L Anion Gap (3-11) BUN (7-18) mg/dl Creatinine (0.6-1.2) mg/dl Est Cr Clr Drug Dosing ml/min Est GFR ( Amer) Est GFR (Non-Af Amer) BUN/Creatinine Ratio (10-20) Glucose (70-99) mg/dl Calcium (8.5-10.1) mg/dl Total Bilirubin (0.2-1) mg/dl AST (15-37) U/L ALT (12-78) U/L Alkaline Phosphatase (45-117) U/L Troponin I (0-0.045) ng/ml Total Protein (6.4-8.2) gm/dl Albumin (3.4-5.0) gm/dl Globulin (2.5-4.0) gm/dl Albumin/Globulin Ratio (0.9-2) Lipase (73-393) U/L COVID-19 Eval Order SARS-CoV-2, RNA, NAAT NEGATIVE (NEGATIVE) Imaging Data Radiologist's Impression: XR chest 1V portable HISTORY: 64 years-old Female Chest Pain acute atypical chest pain COMPARISON: Chest radiograph 08/20/2019 TECHNIQUE: Portable AP view of the chest FINDINGS: Cardiomediastinal and hilar silhouettes are within normal limits. No pneumothorax, pleural effusion, airspace consolidation or overt pulmonary edema. Nipple shadow projects over the lateral left lung base. Bones appear grossly intact. IMPRESSION: No acute process. ACT 112: Negative or not required by law. The above report was generated using voice recognition software. It may contain grammatical, syntax or spelling errors. Electronically signed by: Rubin Santos M.D. 10/30/2020 6:08 PM Dictated: 10/30/201806 Transcribed: 10/30/201806 ECG Data Attestation: I personally reviewed and interpreted this ECG as follows: Indication: + chest pain Rate (beats per minute): 73 Rhythm: + normal sinus ECG [place]: + Normal ECG ST segments: no ST elevation ECG Findings: no PVCs Comparison ECG Date: from (September 20, 2019) Change: no significant change MDM Narrative I did evaluate the patient as noted above. The patient is presenting with constant unremitting chest pain, which she describes as a squeezing, for the past week. The patient's blood pressure is 209/111. She states that when she was at the urgent care center prior to coming here her blood pressure was in the 130s systolic. She was previously on blood pressure medications but taken off by her doctor. She states she is very anxious. IV access was established. I did place an order for continuous cardiac monitoring. The monitor showed normal sinus rhythm at a rate of 78 bpm. I did order and personally review the patient's 12-lead EKG as described above. She has no acute ischemic changes on twelve-lead EKG. I did treat her with nitroglycerin paste to the anterior chest wall. She was also given a full dose aspirin p.o. I did order and personally reviewed the images of the patient's chest x-ray as described above. There is no evidence of acute process. I did order and review the patient's blood work as noted in the electronic medical record. CBC and electrolytes are unremarkable. Troponin is negative. I did reassess the patient. Her blood pressure has come down dramatically. She states that her chest pain is slightly better. I did discuss the test results with her. I did treat her with morphine 2 mg IV and Zofran 4 mg IV. Her chest pain did resolve on reevaluation. I did recommend hospitalization for repeat cardiac biomarkers and further evaluation. Impression & Plan Chest pain Discharge Plan Visit Data Chief Complaint: Cardiac Assessment Stated Complaint: chest pain ED Provider: Yovanny Hartley Discharge Problem: Chest pain Patient Disposition: Admitted As Inpatient Discharge Instructions Interventions: ED Discharge Assessment Last Done: 10/30/20 21:54 Discharge Problem: Chest pain Qualifiers: Chest pain type: unspecified Qualified Code(s): R07.9 - Chest pain, unspecified
[2020-10-30 17:59] LABS: Basophils # (auto) 0.03 K/uL (0-0.2); Basophils % (auto) 0.5 %; Eosinophils # (auto) 0.12 K/uL (0-0.5); Eosinophils % (auto) 2.1 %; Hematocrit (blood only) 39.9 % (37-47); Hemoglobin 13.8 g/dL (12.0-16.0); Immature Granulocytes # (auto) 0.01 K/uL (0.00-0.02); Immature Granulocytes % (auto) 0.2 %; Lymphocytes # (auto) 1.39 K/uL (1.2-3.4); Lymphocytes % (auto) 24.6 %; Mean Corpuscular Hemoglobin 31.9 pg (25-34); Mean Corpuscular Hgb Conc 34.6 g/dL (32-36); Mean Corpuscular Volume 92.1 fL (80-100); Mean Platelet Volume 9.6 fL (7.4-10.4); Monocytes # (auto) 0.67 K/uL (0.11-0.59); Monocytes % (auto) 11.9 %; Neutrophils # (auto) 3.42 K/uL (1.4-6.5); Neutrophils % (auto) 60.7 %; Platelet Count 339 K/uL (130-400); RDW Coefficient of Variation 12.9 % (11.5-14.5); Red Blood Count 4.33 M/uL (4.2-5.4); White Blood Count 5.64 K/uL (4.8-10.8)
[2020-10-30 18:03] LABS: Alanine Aminotransferase 31 U/L (12-78); Albumin Level 3.9 gm/dl (3.4-5.0); Aspartate Aminotransferase 17 U/L (15-37); BUN Creatinine Ratio 20.9 (10-20); Blood Urea Nitrogen 17 mg/dl (7-18); Calcium 9.5 mg/dl (8.5-10.1); Carbon Dioxide 28 mmol/L (21-32); Chloride 106 mmol/L (98-107); Creatinine Clr Calc Pharmacy 56.2 ml/min; Est GFR (African American) 90.3; Est GFR (Non-African American) 77.9; Glucose 105 mg/dl (70-99); Lipase 186 U/L (73-393); Potassium 3.7 mmol/L (3.5-5.1); Sodium 142 mmol/L (136-145)
[2020-10-30 18:08] LABS: Albumin Globulin Ratio 0.9 (0.9-2); Alkaline Phosphatase 82 U/L (45-117); Bilirubin,Total 0.4 mg/dl (0.2-1); Globulin 4.2 gm/dl (2.5-4.0); Total Protein 8.1 gm/dl (6.4-8.2); Troponin I < 0.015 ng/ml (0-0.045)
--- NOTE | 2020-10-30 18:09 | XRay Report ---
XR chest 1V portable HISTORY: 64 years-old Female Chest Pain acute atypical chest pain COMPARISON: Chest radiograph 08/20/2019 TECHNIQUE: Portable AP view of the chest FINDINGS: Cardiomediastinal and hilar silhouettes are within normal limits. No pneumothorax, pleural effusion, airspace consolidation or overt pulmonary edema. Nipple shadow projects over the lateral left lung ba se. Bones appear grossly intact. IMPRESSION: No acute process. ACT 112: Negative or not required by law. The above report was generated using voice recognition software. It may contain grammatical, syntax o r spelling errors. Electronically signed by: Rubin Santos M.D. 10/30/2020 6:08 PM
[2020-10-30] MEDS ORDERED: MoRPHine SULFATE 2 MG/ML CARP IV STA (18:21)
[2020-10-30] MEDS ORDERED: ONDANSETRON INJ 2 MG/ML 2 ML VIAL IV STA (18:21)
[2020-10-30] MEDS ORDERED: NITROGLYCERIN SL 0.4 MG/TAB TAB SL PRN (22:09)
[2020-10-30] MEDS ORDERED: ACETAMINOPHEN 325 MG TAB PO PRN (22:09)
[2020-10-30] MEDS ORDERED: ONDANSETRON INJ 2 MG/ML 2 ML VIAL IV PRN (22:09)
--- NOTE | 2020-10-30 22:51 | History and Physical Report ---
DATE OF ADMISSION: 10/30/2020 CHIEF COMPLAINT: Chest pain. HISTORY OF PRESENT ILLNESS: This is a 64-year-old female with past medical history significant for impaired fasting glucose, hyperlipidemia, seasonal allergic rhinitis, history of sinus tachycardia, history of gastroesophageal reflux disease, currently not on any medications, presents with chest pain. The patient states last Saturday she played with her grand kid. After that, she felt some chest discomfort, with squeezing of the heart, initially was mild and after some time, it was intense for a couple of hours. Before that event, 3 days ago, she had a chest cold.When she had that intense heart squeezing, last Saturday she felt like coming to the hospital, but it was snowing and she was not sure whether EMS able to come to her house to get her to the hospital. After 2 to 2-1/2 hours, it slowly subsided, but since then it is constant, not as intense, but it is constant discomfort of the chest. Not exacerbated by any activity. It is not getting better, it was about 7/10 in severity. She came in to the [facility] today. At that time, she went to [facility], advised to come to the ER. After morphine and nitro, the pain is improving. Currently resting comfortably and hemodynamically stable. Initial workup is negative. Has some headache from nitro. Denies any blurred vision, no earache, no runny nose, no sore throat, no cough. No fever or chills. Even with the chest cold, she never had shortness of breath or cough. No nausea, no vomiting, no sweating, no abdominal pain. Normal bowel and bladder movements. No blood in stools or black stools. No hematuria. No swelling in the legs, no rash. Otherwise, ambulating fine. ALLERGIES: POLLEN. PAST MEDICAL HISTORY: As mentioned above. PAST SURGICAL HISTORY: Tonsillectomy. MEDICATIONS: Vitamin D, and multivitamins. FAMILY HISTORY: Significant for mother had breast cancer. Father had colon polyps, heart disorder. Brother has lung disorder and heart disorder. SOCIAL HISTORY: No smoking, no alcohol, no drug use. Recently . REVIEW OF SYMPTOMS: As per HPI. Rest of review of systems negative. PHYSICAL EXAMINATION: GENERAL: The patient is of moderate build, patient not in acute distress. VITAL SIGNS: Temperature 36.6, pulse 64, respiratory rate 18, blood pressure 134/81, oxygen 95% on room air. HEENT: Pupils equal, round, reactive to light. Oral mucosa moist. NECK: No JVD, no neck masses. CARDIOVASCULAR: S1, S2, regular rate and rhythm, no murmur, no gallop. RESPIRATORY SYSTEM: Normal AP diameter. No accessory muscle use. No wheezing, no crackles. ABDOMEN: Soft, bowel sounds present, nontender. No distention. CENTRAL NERVOUS SYSTEM: Cranial nerves II-XII grossly intact. Nonfocal. EXTREMITIES: No edema, no erythema. LABORATORY DATA: WBC 5.6, hemoglobin 13.8, hematocrit 39.9, platelets 339. Sodium 142, potassium 3.7, chloride 106, bicarbonate 28, BUN 17, creatinine 0.8, serum glucose 105, calcium 9.5, total bilirubin 0.4, AST 17, ALT 31, alkaline phosphatase 82. Troponin I less than 0.015. Lipase 186. SARS-CoV-2 RNA negative. IMAGING: Chest x-ray: No acute process. EKG: Normal sinus rhythm with sinus arrhythmia, rate of 73, no significant change was found. ASSESSMENT AND PLAN: This is a 64-year-old female who presents with chest pain. 1. Chest pain since about a week, constant pain started after chest cold for 3 days and after playing with grand kid last Saturday. Currently, her initial workup is negative with EKG and troponin negative. We will follow the serial enzymes, echo, keep her n.p.o. Consult cardiology in a.m. for further recommendations. 2. History of impaired fasting glucose. We will follow the HbA1c levels, currently n.p.o. 3. History of hyperlipidemia, not on any medication. Follow the fasting lipid profile. 4. Deep vein thrombosis prophylaxis, sequential compression devices. DISPOSITION: Closely monitor in the [employer] tele. Level 1 full code. Expect discharge home and follow with her family doctor. DANYEL
[2020-10-31 06:15] LABS: Basophils # (auto) 0.02 K/uL (0-0.2); Basophils % (auto) 0.4 %; Eosinophils # (auto) 0.26 K/uL (0-0.5); Hematocrit (blood only) 39.4 % (37-47); Hemoglobin 13.2 g/dL (12.0-16.0); Immature Granulocytes # (auto) 0.01 K/uL (0.00-0.02); Immature Granulocytes % (auto) 0.2 %; Lymphocytes # (auto) 1.36 K/uL (1.2-3.4); Lymphocytes % (auto) 26.4 %; Mean Corpuscular Hemoglobin 31.2 pg (25-34); Mean Corpuscular Hgb Conc 33.5 g/dL (32-36); Mean Corpuscular Volume 93.1 fL (80-100); Mean Platelet Volume 9.7 fL (7.4-10.4); Monocytes # (auto) 0.64 K/uL (0.11-0.59); Monocytes % (auto) 12.4 %; Neutrophils # (auto) 2.86 K/uL (1.4-6.5); Neutrophils % (auto) 55.6 %; Platelet Count 345 K/uL (130-400); RDW Coefficient of Variation 13.2 % (11.5-14.5); RDW Standard Deviation 44.9 fL (36.4-46.3); Red Blood Count 4.23 M/uL (4.2-5.4); White Blood Count 5.15 K/uL (4.8-10.8)
[2020-10-31 06:47] LABS: BUN Creatinine Ratio 17.5 (10-20); Blood Urea Nitrogen 16 mg/dl (7-18); Calcium 9.6 mg/dl (8.5-10.1); Carbon Dioxide 26 mmol/L (21-32); Chloride 107 mmol/L (98-107); Cholesterol 201 mg/dl (0-200); Creatinine Clr Calc Pharmacy 50.5 ml/min; Est GFR (African American) 79.4; Est GFR (Non-African American) 68.5; Glucose 93 mg/dl (70-99); Magnesium 2.1 mg/dl (1.8-2.4); Potassium 3.8 mmol/L (3.5-5.1); Sodium 141 mmol/L (136-145); Triglycerides 108 mg/dl (0-150); VLDL Cholesterol 22 mg/dl
[2020-10-31 06:51] LABS: Chol HDL Ratio 3; HDL Cholesterol 72 mg/dl; LDL Cholesterol Calculated 107 mg/dl; Troponin I < 0.015 ng/ml (0-0.045)
[2020-10-31 07:57] LABS: Estimated Average Glucose 123 mg/dl; Hemoglobin A1C 5.9 % (4.5-5.6)
[2020-10-31] MEDS: CEROVITE ADV FORMULA TAB PO SCH ×2 (08:43→08:52)
--- NOTE | 2020-10-31 08:57 | Electrocardiogram Report ---
Test Reason : Blood Pressure : / mmHG Vent. Rate : 073 BPM Atrial Rate : 073 BPM P-R Int : 144 ms QRS Dur : 094 ms QT Int : 366 ms P-R-T Axes : 071 047 062 degrees QTc Int : 403 ms Normal sinus rhythm with sinus arrhythmia Normal ECG When compared with ECG of 20-SEP-2019 17:29, No significant change was found Confirmed by Reji Freitas ([id number]) on 10/31/2020 8:57:04 AM Referred By: REFERRED SELF Confirmed By:Reji Freitas
[2020-10-31] MEDS ORDERED: CHOLECALCIFEROL 1,000 UNITS 25 MCG TAB PO SCH (09:00)
--- NOTE | 2020-10-31 09:13 | Electrocardiogram Report ---
Test Reason : Blood Pressure : / mmHG Vent. Rate : 063 BPM Atrial Rate : 063 BPM P-R Int : 160 ms QRS Dur : 092 ms QT Int : 414 ms P-R-T Axes : 082 067 071 degrees QTc Int : 423 ms Normal sinus rhythm with sinus arrhythmia Normal ECG When compared with ECG of 30-OCT-2020 17:19, No significant change was found Confirmed by Reji Freitas ([id number]) on 10/31/2020 9:13:10 AM Referred By: REFERRED SELF Confirmed By:Reji Freitas
--- NOTE | 2020-10-31 09:29 | Cardiology Consultation ---
Date of Consultation October 31, 2020 Assessment & Plan (1) Chest pain: (2) Chronic bronchitis: (3) GERD (gastroesophageal reflux disease): stress echocardiogram was nonischemic chest pain unchanged with exertion no further cardiac testing or intervention is necessary ok to d/c to home from a cardiac standpoint of note, did have a hypertensive BP response to exercise recommend following up with PCP for further hypertensive management History of Present Illness Reason for Consultation: chest pain Requesting Physician: Dr. Banegas Attending Physician: Cedrick Banegas, History of Present Illness Ms. Petty is a very pleasant 64-year-old woman who does not routinely follow with our cardiology practice. She presented to [facility] on 10/30/2020 with complaints of chest pain. Patient states that her pain started approximately 7 days prior to presentation. At that time she was playing with her 4-year-old grandson and after sitting down she developed severe chest pain. She described as a severe pressure sensation in the center of her chest that radiated across her left precordium. She denied any further radiation of the discomfort nor any associated shortness of breath, diaphoresis, nausea, lightheadedness, dizziness or palpitations. She states that the pain was very severe for approximately 1 hour and she contemplated going to the ER, however, it was snowing so she decided not to seek treatment. Since then the discomfort has remained constant but not as severe. She denies any aggravating or alleviating factors. Of note, she is also been dealing with a chest cold for approximately 2 weeks with a productive cough but she denies any pleuritic component to her chest discomfort. Upon presentation her initial evaluation was unremarkable and she was admitted to telemetry. Currently states that her discomfort is unchanged since presentation. Allergies Allergy/AdvReac Type Severity Reaction Status Date / Time tree and shrub pollen Allergy Intermediate sneezing/itchy Verified 10/30/20 18:46 watery eyes lillies Allergy Intermediate sneezing/itchy Uncoded 10/30/20 18:46 watery eyes Home Medications Medication Instructions Recorded Confirmed Type cholecalciferol (vitamin D3) 25 mcg PO DAILY 10/30/20 10/30/20 History [Vitamin D3] qkbrolmu-gva-obaf-FA-lutein 1 tab PO DAILY 10/30/20 10/30/20 History [Multivitamin Women 50 Plus] Patient History Medical History (Updated 10/31/20 @ 09:28 by Yonny Parisi DO) Chronic bronchitis Hypertension Kidney infection Respiratory failure, acute Surgical History History of bladder surgery Social History Smoking Status: Never smoker Hx Alcohol Use: No Hx Substance Use: No Preferred Language: Greek Communication Ability: Effective Medicare Coordinator Required: No Beliefs That Will Affect Care: None Current Living Situation: Spouse Other Information That Helps Us Care for You: No Feels Safe at Home: Yes Safety Concerns: Feels Safe At This Time Assistive Devices: Glasses Review of Systems Review of Systems: All systems reviewed & are unremarkable except as noted in HPI & below Physical Exam Physical Exam: General: Awake, alert and oriented x 3. No acute distress. HEENT: Normocephalic, atraumatic. Pupils equal, round and reactive to light and accommodation. Extraocular muscles are intact. Anicteric sclera. Moist mucous membranes. Neck: No JVD. No bruit. Cardiovascular: Regular. Positive S-4. Normal S-1 and S-2. No S-3. No murmurs or rubs. Pulmonary: Clear to auscultation B/L. No rales, rhonchi or wheezing Abdomen: Bowel sounds x 4, soft. No rebound, guarding or tenderness. No organomegaly. Extremities: No clubbing, cyanosis or edema. +2 pedal pulses bilaterally. Skin: Warm and dry. Results & Data ([facility]) Vital Signs (Past 12 Hours) Vital Signs Temp Pulse Pulse Pulse Resp BP Pulse Ox 10/31/20 02:55 36.6 C 73 18 128/66 96 10/30/20 22:19 67 10/30/20 22:12 36.5 C 92 H 16 172/72 H 94 10/30/20 22:10 80 10/30/20 21:45 86 18 110/65 96 Laboratory Results Laboratory Results - last 24 hr 10/30/20 10/30/20 10/30/20 17:34 17:34 18:30 WBC 5.64 RBC 4.33 Hgb 13.8 Hct 39.9 MCV 92.1 MCH 31.9 MCHC 34.6 RDW Std Deviation 44.0 RDW Coeff of Shannan 12.9 Plt Count 339 MPV 9.6 Immature Gran % (Auto) 0.2 Neut % (Auto) 60.7 Lymph % (Auto) 24.6 Dawson % (Auto) 11.9 Eos % (Auto) 2.1 Baso % (Auto) 0.5 Neut # (Auto) 3.42 Lymph # (Auto) 1.39 Dawson # (Auto) 0.67 H Eos # (Auto) 0.12 Baso # (Auto) 0.03 Immature Gran # (Auto) 0.01 Sodium 142 Potassium 3.7 Chloride 106 Carbon Dioxide 28 Anion Gap 8.0 BUN 17 Creatinine 0.80 Est Cr Clr Drug Dosing 56.2 Est GFR ( Amer) 90.3 Est GFR (Non-Af Amer) 77.9 BUN/Creatinine Ratio 20.9 H Glucose 105 H Estimat Average Glucose Hemoglobin A1c Calcium 9.5 Magnesium Total Bilirubin 0.4 AST 17 ALT 31 Alkaline Phosphatase 82 Troponin I < 0.015 Total Protein 8.1 Albumin 3.9 Globulin 4.2 H Albumin/Globulin Ratio 0.9 Triglycerides Cholesterol LDL Cholesterol, Calc VLDL Cholesterol, Calc HDL Cholesterol Cholesterol/HDL Ratio Lipase 186 COVID-19 Eval Order Covid19 [facility]Now [facility] SARS-CoV-2, RNA, NAAT 10/30/20 10/31/20 10/31/20 18:30 05:30 05:30 WBC 5.15 RBC 4.23 Hgb 13.2 Hct 39.4 MCV 93.1 MCH 31.2 MCHC 33.5 RDW Std Deviation 44.9 RDW Coeff of Shannan 13.2 Plt Count 345 MPV 9.7 Immature Gran % (Auto) 0.2 Neut % (Auto) 55.6 Lymph % (Auto) 26.4 Dawson % (Auto) 12.4 Eos % (Auto) 5.0 Baso % (Auto) 0.4 Neut # (Auto) 2.86 Lymph # (Auto) 1.36 Dawson # (Auto) 0.64 H Eos # (Auto) 0.26 Baso # (Auto) 0.02 Immature Gran # (Auto) 0.01 Sodium 141 Potassium 3.8 Chloride 107 Carbon Dioxide 26 Anion Gap 8.0 BUN 16 Creatinine 0.89 Est Cr Clr Drug Dosing 50.5 Est GFR ( Amer) 79.4 Est GFR (Non-Af Amer) 68.5 BUN/Creatinine Ratio 17.5 Glucose 93 Estimat Average Glucose Hemoglobin A1c Calcium 9.6 Magnesium 2.1 Total Bilirubin AST ALT Alkaline Phosphatase Troponin I < 0.015 Total Protein Albumin Globulin Albumin/Globulin Ratio Triglycerides 108 Cholesterol 201 H LDL Cholesterol, Calc 107 VLDL Cholesterol, Calc 22 HDL Cholesterol 72 Cholesterol/HDL Ratio 3 Lipase COVID-19 Eval Order SARS-CoV-2, RNA, NAAT NEGATIVE 10/31/20 05:30 WBC RBC Hgb Hct MCV MCH MCHC RDW Std Deviation RDW Coeff of Shannan Plt Count MPV Immature Gran % (Auto) Neut % (Auto) Lymph % (Auto) Dawson % (Auto) Eos % (Auto) Baso % (Auto) Neut # (Auto) Lymph # (Auto) Dawson # (Auto) Eos # (Auto) Baso # (Auto) Immature Gran # (Auto) Sodium Potassium Chloride Carbon Dioxide Anion Gap BUN Creatinine Est Cr Clr Drug Dosing Est GFR ( Amer) Est GFR (Non-Af Amer) BUN/Creatinine Ratio Glucose Estimat Average Glucose 123 Hemoglobin A1c 5.9 H Calcium Magnesium Total Bilirubin AST ALT Alkaline Phosphatase Troponin I Total Protein Albumin Globulin Albumin/Globulin Ratio Triglycerides Cholesterol LDL Cholesterol, Calc VLDL Cholesterol, Calc HDL Cholesterol Cholesterol/HDL Ratio Lipase COVID-19 Eval Order SARS-CoV-2, RNA, NAAT Medications Administered Current Inpatient Medications Acetaminophen (Acetaminophen 325 Mg Tab) 650 mg PO Q4H PRN PRN Reason: Pain or Fever Stop: 11/29/20 22:08 Last Admin: 10/31/20 08:42 Dose: 650 mg Documented by: Multivitamins/Minerals (Cerovite Adv Formula Tab) 1 tab PO DAILY [facility] Stop: 11/30/20 08:59 Last Admin: 10/31/20 08:52 Dose: Not Given Documented by: Nitroglycerin (Nitroglycerin Sl 0.4 Mg/Tab Tab) 0.4 mg SL UD PRN PRN Reason: Chest Pain Stop: 11/29/20 22:08 Ondansetron HCl (Ondansetron Inj 2 Mg/Ml 2 Ml Vial) 4 mg IV Q6H PRN PRN Reason: Nausea Stop: 11/29/20 22:08 Vitamin D (Cholecalciferol 1,000 Units 25 Mcg Tab) 1,000 units PO DAILY [facility] Stop: 11/30/20 08:59 Last Admin: 10/31/20 08:43 Dose: 1,000 units Documented by: (1) Chest pain Chest pain type: unspecified Qualified Code(s): R07.9 - Chest pain, unspecifi ed
--- NOTE | 2020-10-31 09:37 | Hospitalist Progress Note ---
Date of Service October 31, 2020 Assessment & Plan (1) GERD (gastroesophageal reflux disease): (2) Chest pain: (3) Chronic bronchitis: ASSESSMENT AND PLAN: This is a 64-year-old female who presents with chest pain. 1. Chest pain, likely acute bronchitis, since about a week, constant pain started after chest cold for 3 days and after playing with grand kid last Saturday. 2. History of impaired fasting glucose. We will follow the HbA1c levels, currently n.p.o. 3. History of hyperlipidemia, not on any medication. Follow the fasting lipid profile. 4. Deep vein thrombosis prophylaxis, sequential compression devices. EKG normal, Dave are negative, Echo normal, Await Cards eval, CTC wo IVC ordered- DC if w/u negative DISPOSITION: Discharge home and follow with PCP. ROS-No Headache, No Visual Changes, No Nausea, No Vomiting, No Fever, No Chills, No Neck Pain or Stiffness, + Chest Pain, No Palpitations, No SOB, No GALAN, + Cough, No Sputum, No Wheezing, No Abdominal Pain, No Diarrhea, No Hematemesis, No Hemoptysis, No Unexpected Weight Loss, No Flank pain, No Melena, No Hematochezia, No Frequency, No Urgency, No Burning, No Hematuria, No Rashes, No Diaphoresis. Appetite is Normal Physical Exam Gen-AAO x 3, NAD, Afebrile Head-NCAT, EOMI, PERRLA, Anicteric Sclera, No Posterior Pharyngeal Erythema Neck-Supple, No JVD, No Thyromegaly, No Masses, No LAD, No Bruits Lungs-Clear to Auscultation Bilaterally, No Rales, No Rhonchi, No Wheezing, No Crepitus Chest-No S4, +S1, +S2, No S3, No Murmurs, No Rubs, No Gallops, No Ectopy Abdomen-Soft, Bowel Sounds Present, Non Tender, Non Distended, No Hepatomegaly, No Splenomegaly, No Palpable Masses, No Rebound, No Rigidity, No Guarding Musculoskeletal-Full Range of Motion Bilaterally, No CVAT Extremities-No Cyanosis, No Clubbing, No Edema Nuero-Cranial Nerves II-XII grossly intact, Motor WNL, DTRs WNL, Strength WNL, Non Focal Psych-Normal Mood Admission and Anticipated Discharge Date Admission Date: October 30, 2020 Results & Data Results & Data ([facility]) Vital Signs (Past 12 Hours) Vital Signs Temp Pulse Pulse Pulse Resp BP Pulse Ox 10/31/20 02:55 36.6 C 73 18 128/66 96 10/30/20 22:19 67 10/30/20 22:12 36.5 C 92 H 16 172/72 H 94 10/30/20 22:10 80 10/30/20 21:45 86 18 110/65 96 (1) Chest pain Chest pain type: unspecified Qualified Code(s): R07.9 - Chest pain, unspecified
--- NOTE | 2020-10-31 10:15 | CT Scan Report ---
CT OF THE CHEST WITHOUT IV CONTRAST CLINICAL HISTORY: Emphysema. Shortness of breath. Chest pain. COMPARISON STUDY: Chest CT January 12, 2017. Chest radiograph October 30, 2020. CT DOSE: 189.05 mGy.cm TECHNIQUE: Axial images of the chest were obtained without IV contrast. Images were reviewed in the axial, sagittal, and coronal planes. IV contrast was not administered for this examination. Automat ed exposure control was utilized for the study. A dose lowering technique was utilized adhering to t he principles of ALARA. FINDINGS: No enlarged axillary, mediastinal or hilar lymph nodes are present. The size of the heart is normal. There is no pericardial effusion. Central airways are patent. There is no pneumothorax or pleural effusion. Minimal lingular opacity favors atelectasis. No consolidation is identified. There is mild biapical scarring. No suspicious lesions within the bony thorax are noted. A 1 cm hypodense r ight hepatic dome lesion is similar to CT of August 12, 2019. This is likely benign. There is scarr ing within the upper pole the left kidney. A few punctate calcifications within the upper pole of the left kidney are noted. IMPRESSION: 1. No acute process within the chest. 2. Minimal lingular opacity suggestive of atelectasis. ACT 112: Negative or not required by law. Electronically signed by: Piter Melissa M.D. 10/31/2020 10:13 AM
[2020-10-31 10:25] LABS: D Dimer 700 ug/L FEU (0-500)
[2020-10-31] MEDS ORDERED: OPTIRAY 320 125ml IV ONE (12:29)
--- NOTE | 2020-10-31 13:00 | CT Scan Report ---
CT ANGIOGRAPHY OF THE CHEST, PULMONARY EMBOLUS PROTOCOL CLINICAL HISTORY: Mid chest pain. COMPARISON STUDY: Chest radiograph October 30, 2020. Chest CT October 2020 at 9:56 AM. TECHNIQUE: Following IV administration of 119 mL of Optiray-320, helical axial images of the chest we re obtained utilizing the pulmonary embolus protocol. Maximal intensity projections and sagittal and coronal reformats were viewed on an independent 3D workstation. IV contrast was administered withou t complication. Automated exposure control was utilized for the study. A dose lowering technique wa s utilized adhering to the principles of ALARA. CT DOSE: 241.26 mGy.cm FINDINGS: No pulmonary emboli are identified. There is no thoracic aortic dissection. The size of th e heart is normal. No pericardial effusion is noted. There is mild bronchial wall thickening and mucu s plugging within the bilateral lower lobes and lingula. There is no consolidation to suggest pneumon ia. Linear and groundglass opacities within the lingula represent atelectasis. Ground glass opacities within the lower lobes represent atelectasis. The bony thorax is unremarkable. A 1.2 cm hypodense ri ght hepatic dome lesion is suboptimally assessed on this exam. This is similar to CT of August 12, 2019. This is indeterminate although probably benign. IMPRESSION: 1. No pulmonary emboli identified. 2. No consolidation to suggest pneumonia. 3. Mild mucus plugging and bronchial wall thickening within the lower lobes and lingula. ACT 112: Negative or not required by law. Electronically signed by: Piter Melissa M.D. 10/31/2020 12:59 PM
--- NOTE | 2020-10-31 15:21 | Discharge Summary ---
Date of Service October 31, 2020 Admission HPI Per Admitting Provider 64-year-old female with past medical history significant for impaired fasting glucose, hyperlipidemia, seasonal allergic rhinitis, history of sinus tachycardia, history of gastroesophageal reflux disease, currently not on any medications, presents with chest pain. The patient states last Saturday she played with her grand kid. After that, she felt some chest discomfort, with squeezing of the heart, initially was mild and after some time, it was intense for a couple of hours. Before that event, 3 days ago, she had a chest cold.When she had that intense heart squeezing, last Saturday she felt like coming to the hospital, but it was snowing and she was not sure whether EMS able to come to her house to get her to the hospital. After 2 to 2-1/2 hours, it slowly subsided, but since then it is constant, not as intense, but it is constant discomfort of the chest. Not exacerbated by any activity. It is not getting better, it was about 7/10 in severity. She came in to the [facility] today. At that time, she went to [facility], advised to come to the ER. After morphine and nitro, the pain is improving. Currently resting comfortably and hemodynamically stable. Initial workup is negative. Has some headache from nitro. Denies any blurred vision, no earache, no runny nose, no sore throat, no cough. No fever or chills. Even with the chest cold, she never had shortness of breath or cough. No nausea, no vomiting, no sweating, no abdominal pain. Normal bowel and bladder movements. No blood in stools or black stools. No hematuria. No swelling in the legs, no rash. Otherwise, ambulating fine. Admission Exam Per Admitting Provider PHYSICAL EXAMINATION: GENERAL: The patient is of moderate build, patient not in acute distress. VITAL SIGNS: Temperature 36.6, pulse 64, respiratory rate 18, blood pressure 134/81, oxygen 95% on room air. HEENT: Pupils equal, round, reactive to light. Oral mucosa moist. NECK: No JVD, no neck masses. CARDIOVASCULAR: S1, S2, regular rate and rhythm, no murmur, no gallop. RESPIRATORY SYSTEM: Normal AP diameter. No accessory muscle use. No wheezing, no crackles. ABDOMEN: Soft, bowel sounds present, nontender. No distention. CENTRAL NERVOUS SYSTEM: Cranial nerves II-XII grossly intact. Nonfocal. EXTREMITIES: No edema, no erythema. Principal Diagnosis Atypical Chest Pain GERD Hyperlipidemia Discharge Exam See below Discharge Data Allergies Allergy/AdvReac Type Severity Reaction Status Date / Time tree and shrub pollen Allergy Intermediate sneezing/itchy Verified 10/30/20 18:46 watery eyes lillies Allergy Intermediate sneezing/itchy Uncoded 10/30/20 18:46 watery eyes Consultations 10/30/20 19:16 ED Decision to Admit Stat 10/30/20 22:09 Consult Case Management - Discharge Planning Routine 10/31/20 08:00 Consult Cardiology Routine Ordered Studies 10/31/20 09:31 CT chest diagnostic wo con Routine 10/31/20 11:33 CT angio chest PE protocol Urgent Current Diagnoses Unspecified chronic bronchitis (10/30/20) Gastro-esophageal reflux disease without esophagitis (10/30/20) Chest pain, unspecified (10/30/20) Allergies tree and shrub pollen Allergy (Intermediate, Verified 10/30/20 18:46) sneezing/itchy watery eyes lillies Allergy (Intermediate, Uncoded 10/30/20 18:46) sneezing/itchy watery eyes Height/Weight/Isolation Height 5 ft 2 in Weight 50.8 kg Chemistry 10/30/20 10/31/20 17:34 05:30 Sodium 142 141 Potassium 3.7 3.8 Chloride 106 107 Carbon Dioxide 28 26 Anion Gap 8.0 8.0 BUN 17 16 Creatinine 0.80 0.89 Glucose 105 H 93 Hospital Course (1) GERD (gastroesophageal reflux disease): (2) Chest pain: (3) Chronic bronchitis: ASSESSMENT AND PLAN: This is a 64-year-old female who presents with chest pain. 1. Atypical Chest pain, No evidence of bronchitis 2. History of impaired fasting glucose. 3. History of hyperlipidemia, not on any medication. Follow the fasting lipid profile. EKG normal, Dave are negative, Echo normal, Cards eval done a CP non cardiac, CTC wo IVC neg for PE, Sirometry DISPOSITION: Discharge home and follow with PCP. ROS-No Headache, No Visual Changes, No Nausea, No Vomiting, No Fever, No Chills, No Neck Pain or Stiffness, + Chest Pain, No Palpitations, No SOB, No GALAN, + Cough, No Sputum, No Wheezing, No Abdominal Pain, No Diarrhea, No Hematemesis, No Hemoptysis, No Unexpected Weight Loss, No Flank pain, No Melena, No Hematochezia, No Frequency, No Urgency, No Burning, No Hematuria, No Rashes, No Diaphoresis. Appetite is Normal Physical Exam Gen-AAO x 3, NAD, Afebrile Head-NCAT, EOMI, PERRLA, Anicteric Sclera, No Posterior Pharyngeal Erythema Neck-Supple, No JVD, No Thyromegaly, No Masses, No LAD, No Bruits Lungs-Clear to Auscultation Bilaterally, No Rales, No Rhonchi, No Wheezing, No Crepitus Chest-No S4, +S1, +S2, No S3, No Murmurs, No Rubs, No Gallops, No Ectopy Abdomen-Soft, Bowel Sounds Present, Non Tender, Non Distended, No Hepatomegaly, No Splenomegaly, No Palpable Masses, No Rebound, No Rigidity, No Guarding Musculoskeletal-Full Range of Motion Bilaterally, No CVAT Extremities-No Cyanosis, No Clubbing, No Edema Nuero-Cranial Nerves II-XII grossly intact, Motor WNL, DTRs WNL, Strength WNL, Non Focal Psych-Normal Mood Total Time Total Time Spent Total Time Spent (In Minutes): 45 mins Total Time Includes: Examination of the Patient, Discharge Planning, Medication Reconciliation and Communication With Other Providers Discharge Plan Discharge Items Patient Disposition: Home - Self-Care Reason For Visit: chest pain Discharge Diagnosis: Atypical Chest Pain GERD Hyperlipidemia Condition on Discharge: Good Activity: Resume your previous activity Lifting: Gradually increase as tolerated Bathing: No limitations Sexual Activity: When tolerated Exercise/Sports: Gradually increase as tolerated Driving/Machine Use: No limitations Weightbearing: Full weightbearing Non-emergency contact: Primary Care Provider Call non-emergency contact if: you have any medication questions Follow-up/Referrals: Syl Martinez DO [Primary Care Provider] - (Date & Time 11/07/2020 11:20 AM Provider Syl Martinez DO Department [facility] ) Diet: Heart Healthy Addtl Attending Provider Instructions: Spirometer-10 times per hour while awake Pending Studies at Discharge: No Stand-Alone Forms: [employer], Smoking Cessation Medications and DC Order Prescriptions: Continued cholecalciferol (vitamin D3) [Vitamin D3] 25 mcg (1,000 unit) Capsule 25 mcg PO DAILY RF: 0 Multivitamin Women 50 Plus 8 mg iron-400 mcg-300 mcg Tablet 1 tab PO DAILY RF: 0 Discharge Orders: Discharge Order (Routine); Ordered 10/31/20 Ordered By: Cedrick Banegas Admission Data Admit Date/Time: 10/30/20 21:36 Attending Provider: Cedrick Banegas Admit Provider: Raji Watkins Primary Care Provider: Syl Martinez Other Providers: Raji Watkins ; Yonny Parisi ; Filemon Mike ; Jam Egan ; Yovanny Muro ; Gurdeep Amaral ; Mani Marcus ; Mimi Rodrigues ; Nadia Montiel ; Jose Francisco Paul
== END 2020-10-31 16:20 | disposition home or self-care (01) ==
LOC: ED 17:09 → 2N 17:09

== ENCOUNTER 2020-12-17 18:50 | Observation (INO) ==
--- NOTE | 2020-12-17 19:16 | Emergency Department Note ---
History of Present Illness General Chief complaint: Shortness of Breath/Dyspnea Stated complaint: SOB/ANXIETY Time Seen by Provider: 12/17/20 19:00 Source: patient Mode of arrival: EMS Limitations: no limitations History of Present Illness Maximum Pain Intensity: 7 This patient comes in after feeling sick for the last 3 days. She said on Saturday or Saturday she started with a headache and a head cold later in the week it went into her chest she has had some cough and shortness of breath she was seen in urgent care on Saturday they ran a Covid which was negative a chest x- ray which was negative according to the patient and the start on Doxy and prednisone. She also use an inhaler. She is never used inhalers before. She use an inhaler today and her pulse did go up but her shortness of breath improved she developed chest tightness. She still says she has some chest tightness although appears in no distress. No pleurisy. She had low-grade temperature 2 days ago but none since. No nausea vomiting fever chills she has been coughing up some yellow phlegm. She has not had the Covid vaccine. Her was also tested -2 days ago. Home Medications Medication Instructions Recorded Confirmed Type albuterol sulfate 2 puff INHALATION Q6H PRN 12/17/20 12/17/20 History doxycycline hyclate 100 mg PO BID 12/17/20 12/17/20 History prednisone 20 mg PO DAILY 12/17/20 12/17/20 History Allergies Allergy/AdvReac Type Severity Reaction Status Date / Time tree and shrub pollen Allergy Intermediate sneezing/itchy Verified 12/17/20 21:30 watery eyes lillies Allergy Intermediate sneezing/itchy Uncoded 12/17/20 21:30 watery eyes Past Med/Surg History Medical History (Updated 12/18/20 @ 00:55 by Raúl Hall MD) Chronic bronchitis Hypertension Kidney infection Respiratory failure, acute Surgical History History of bladder surgery Social History Smoking Status: Never smoker Second Hand Exposure: No; Do You Dip or Chew Tobacco: No; Tobacco Cessation Education Requested by Patient: No Hx Alcohol Use: No Hx Substance Use: No Preferred Language: Qatari Communication Ability: Effective Stove Cleaner Required: No Beliefs That Will Affect Care: None Current Living Situation: Spouse Other Information That Helps Us Care for You: No Feels Safe at Home: Yes Safety Concerns: Feels Safe At This Time Assistive Devices: Glasses Review of Systems A total of 10 systems reviewed and were otherwise negative Physical Exam Vital Signs Vital Signs - 24 hr 12/17/20 18:57 12/17/20 19:47 12/17/20 20:00 Temperature 36.8 C Temperature Source Oral Pulse Rate 109 H 100 H Pulse Rate [Right Apical] Pulse Rate from SpO2 Sensor 98 H Respiratory Rate 18 19 Respiratory Effort / Characteristics Short of Breath Respiratory Depth Normal Respiratory Pattern Regular Blood Pressure 167/94 H 154/84 H Blood Pressure Mean 118 107 Blood Pressure Position Sitting Pulse Oximetry 97 93 Oxygen Delivery Method Room Air Room Air Room Air Sepsis Recent Fever Within 48 Hours No Sepsis New/Unexplained Change in Mental Status N/A Sepsis Action Taken by Nursing No Action Required 12/17/20 20:30 12/17/20 21:00 12/17/20 21:30 Temperature Temperature Source Pulse Rate 96 H 97 H 86 Pulse Rate [Right Apical] Pulse Rate from SpO2 Sensor 95 H 98 H 86 Respiratory Rate 22 22 18 Respiratory Effort / Characteristics Respiratory Depth Respiratory Pattern Blood Pressure 164/86 H 142/81 H 136/81 Blood Pressure Mean 112 101 99 Blood Pressure Position Pulse Oximetry 94 94 92 Oxygen Delivery Method Sepsis Recent Fever Within 48 Hours Sepsis New/Unexplained Change in Mental Status Sepsis Action Taken by Nursing 12/17/20 22:00 12/17/20 22:30 12/17/20 23:00 Temperature Temperature Source Pulse Rate 80 81 80 Pulse Rate [Right Apical] Pulse Rate from SpO2 Sensor 82 81 83 Respiratory Rate 18 17 20 Respiratory Effort / Characteristics Respiratory Depth Respiratory Pattern Blood Pressure 135/81 144/74 H 155/79 H Blood Pressure Mean 99 97 104 Blood Pressure Position Pulse Oximetry 95 94 94 Oxygen Delivery Method Room Air Sepsis Recent Fever Within 48 Hours Sepsis New/Unexplained Change in Mental Status Sepsis Action Taken by Nursing 12/17/20 23:16 12/17/20 23:30 Temperature Temperature Source Pulse Rate 93 H Pulse Rate [Right Apical] 89 Pulse Rate from SpO2 Sensor 92 H Respiratory Rate 20 22 Respiratory Effort / Characteristics Non-Labored Spontaneous Respiratory Depth Respiratory Pattern Blood Pressure 151/81 H Blood Pressure Mean 104 Blood Pressure Position Pulse Oximetry 92 94 Oxygen Delivery Method Room Air Sepsis Recent Fever Within 48 Hours Sepsis New/Unexplained Change in Mental Status Sepsis Action Taken by Nursing General: Well developed well nourished in no acute distress, breathing comfortably on room air. Normal speech HEENT: Normal cephalic atraumatic. Pupils are equal round and reactive to light. Extraocular movements are intact. Oropharynx is pink with moist mucous membranes. No swelling of the mouth lips or tongue. Neck: Supple with a midline trachea. No meningeal signs or stiffness, no JVD or bruits. No Stridor. Chest: She does have diffuse wheezes/rhonchi bilaterally but No increased work of breathing. Heart: Regular rate and rhythm without murmurs or gallops. Abdomen: Soft nontender, nondistended without rebound guarding or rigidity. Extremities: No cyanosis clubbing or edema. No calf tenderness or assymetry Spine/Back. Non tender to palpation. No CVA tenderness Skin: Good turgor without rashes. Neurologic exam: Cranial nerves two through 12 are intact. Motor and sensation are intact and symmetrical throughout. Course Administered Medications Ipratropium Cutler (Ipratropium Cutler Neb Soln 0.02% 2.5 Ml Vial) 0.5 mg INH Q6R [facility] Stop: 01/17/21 00:59 Last Admin: 12/18/20 00:49 Dose: Not Given Documented by: [id number] Levalbuterol HCl (Levalbuterol 1.25mg/0.5ml Neb) 1.25 mg INH Q6R HERNESTO Stop: 01/17/21 00:59 Last Admin: 12/18/20 00:49 Dose: Not Given Documented by: [id number] Discontinued Medications Aspirin (Aspirin 81 Mg Chew) 324 mg PO NOW STA Stop: 12/18/20 00:08 Last Admin: 12/18/20 00:19 Dose: 324 mg Documented by: [id number] Cosigned by: [id number] Magnesium Sulfate/Dextrose (Magnesium Sulfate / D5w) 1 gm in 100 mls @ 50 mls/hr IV ONE ONE Stop: 12/18/20 00:24 Last Admin: 12/17/20 23:15 Dose: 50 mls/hr Documented by: [id number] Sodium Chloride (Nss) 500 mls @ 500 mls/hr IV .Q1H ONE Stop: 12/17/20 23:50 Last Admin: 12/17/20 23:15 Dose: 500 mls/hr Documented by: [id number] Ipratropium Cutler (Ipratropium Cutler Neb Soln 0.02% 2.5 Ml Vial) 0.5 mg INH NOW STA Stop: 12/17/20 22:50 Last Admin: 12/17/20 23:14 Dose: 0.5 mg Documented by: [id number] Ketorolac Tromethamine (Ketorolac Tromethamine 15 Mg/Ml Vial) 15 mg IV NOW ONE Stop: 12/17/20 22:50 Last Admin: 12/18/20 00:18 Dose: Not Given Documented by: [id number] Levalbuterol HCl (Levalbuterol 1.25mg/0.5ml Neb) 1.25 mg INH NOW STA Stop: 12/17/20 22:50 Last Admin: 12/17/20 23:14 Dose: 1.25 mg Documented by: [id number] Methylprednisolone (Methylprednisolone 40 Mg/Ml Vial) 20 mg IV NOW STA Stop: 12/17/20 22:48 Last Admin: 12/17/20 23:15 Dose: 20 mg Documented by: [id number] Morphine Sulfate (Morphine Sulfate 2 Mg/Ml Carp) 2 mg IV NOW STA Stop: 12/17/20 21:09 Last Admin: 12/17/20 21:24 Dose: 2 mg Documented by: [id number] Nitroglycerin (Nitroglycerin Sl 0.4 Mg/Tab Tab) 0.4 mg SL NOW STA Stop: 12/17/20 23:50 Last Admin: 12/18/20 00:18 Dose: Not Given Documented by: [id number] Nitroglycerin (Nitroglycerin Sl 0.4 Mg/Tab Tab) Confirm Administered Dose 0.4 mg .ROUTE .STK-MED ONE Stop: 12/17/20 23:54 Last Admin: 12/17/20 23:53 Dose: 0.4 mg Documented by: [id number] Ondansetron HCl (Ondansetron Inj 2 Mg/Ml 2 Ml Vial) 4 mg IV NOW STA Stop: 12/17/20 21:09 Last Admin: 12/17/20 21:24 Dose: 4 mg Documented by: [id number] Potassium Chloride (Potassium Chloride 10 Meq Tabcr) 50 meq PO NOW STA Stop: 12/17/20 22:26 Last Admin: 12/17/20 23:15 Dose: 50 meq Documented by: [id number] Medical Decision Making Differential Diagnosis Pneumonia, bronchitis, arrhythmia, reactive airway disease, PE, Covid, elect rolyte or metabolic abnormality, anemia Medical Records Attestation: I reviewed the patient's medical records. Home Medications Current Medication List: was personally reviewed by me Laboratory Data Attestation: I reviewed the patient's lab results. Result diagrams: 12/17/20 Unknown 12/17/20 Unknown Lab Results 12/17/20 12/17/20 12/17/20 Range/Units 19:47 19:50 19:50 D-Dimer 290 (0-500) ug/L FEU Troponin I (0-0.045) ng/ml COVID-19 Eval [address] CovFluRsv at [facility] SARS-CoV-2 (PCR) NEGATIVE (Negative) Influenza Type A (PCR) Negative (Neg) Influenza Type B (PCR) Negative (Neg) RSV (RT-PCR) Negative (Neg) 12/17/20 Range/Units 22:57 D-Dimer (0-500) ug/L FEU Troponin I < 0.015 (0-0.045) ng/ml COVID-19 Eval Order SARS-CoV-2 (PCR) (Negative) Influenza Type A (PCR) (Neg) Influenza Type B (PCR) (Neg) RSV (RT-PCR) (Neg) Imaging Data Attestation: I personally reviewed and interpreted this imaging study as follows: My Impression: Chest x-rayno acute infiltrate, failure, pneumothorax seen Radiologist's Impression: XR chest 1V portable HISTORY: Atypical Chest Pain COMPARISON: Chest 10/30/2020. FINDINGS: The lungs are clear. Cardiac silhouette is normal in size. No pleural effusions. No pneumothorax. IMPRESSION: No acute process. ECG Data Attestation: I personally reviewed and interpreted this ECG as follows: Indication: + chest pain and + SOB/dyspnea Rate (beats per minute): 112 Rhythm: + sinus tachycardia ECG Intervals/blocks: + Normal QRS, + Normal QT and + Normal [place] ECG [place]: + Normal ECG ST segments: + Normal ST segments ECG Findings: no PACs Comparison ECG Date: from (10/31/20) Change: the following changes noted (Rate has increased otherwise no change) MDM Narrative This patient comes in as described above she is had a cough and shortness of breath for several days she has some chest pressure as well. Her breathing seem ed to get better with the neb. She still is uses but appears in no distress. IV access was established. She had received Solu-Medrol 125 mg IV prior to arrival. She was in sinus tachycardia. Chest x-ray was clear. Covid testing was negative. EKG shows sinus tachycardia without ischemic changes. It seems like she got chest pain after using her inhaler today that helps her breathing however it may be related to her sinus tachycardia. Her lungs do sound wheezy she did receive a neb on route and is feeling better she is not short of breath but she still sounds really wheezy and junky. D-dimer was negative and I do not think this is likely PE. She was given IV morphine 2 mg and Zofran 4 mg IV and she did not have much relief. She looks well but I do think she needs to be admitted for further treatment and evaluation. Continuous cardiac monitoring: Due to her shortness of breath she was placed on a continuous commercial credit portfolio manager, upon my interpretation she was noted to be in sinus tachycardia with a rate of 110. Impression & Plan Chest pain, Wheezing, SOB (shortness of breath), Sinus tachycardia Discharge Plan Visit Data Chief Complaint: Shortness of Breath/Dyspnea Stated Complaint: SOB/ANXIETY ED Provider: Raúl Hall Discharge Problem: Chest pain, Wheezing, SOB (shortness of breath), Sinus tachycardia Patient Disposition: Admitted As Inpatient Discharge Instructions Interventions: ED Discharge Assessment Last Done: 12/18/20 00:17 Discharge Problem: Chest pain Qualifiers: Chest pain type: unspecified Qualified Code(s): R07.9 - Chest pain, unspecified
[2020-12-17 19:19] LABS: Basophils # (auto) 0.01 K/uL (0-0.2); Basophils % (auto) 0.2 %; Hematocrit (blood only) 40.1 % (37-47); Hemoglobin 13.6 g/dL (12.0-16.0); Immature Granulocytes # (auto) 0.02 K/uL (0.00-0.02); Immature Granulocytes % (auto) 0.3 %; Lymphocytes # (auto) 0.46 K/uL (1.2-3.4); Mean Corpuscular Hemoglobin 31.1 pg (25-34); Mean Corpuscular Hgb Conc 33.9 g/dL (32-36); Mean Corpuscular Volume 91.8 fL (80-100); Mean Platelet Volume 9.5 fL (7.4-10.4); Monocytes # (auto) 0.29 K/uL (0.11-0.59); Neutrophils % (auto) 86.5 %; Platelet Count 323 K/uL (130-400); RDW Coefficient of Variation 12.9 % (11.5-14.5); RDW Standard Deviation 43.5 fL (36.4-46.3); Red Blood Count 4.37 M/uL (4.2-5.4); White Blood Count 5.78 K/uL (4.8-10.8)
[2020-12-17 19:27] LABS: Alanine Aminotransferase 39 U/L (12-78); Albumin Level 3.8 gm/dl (3.4-5.0); Aspartate Aminotransferase 14 U/L (15-37); BUN Creatinine Ratio 22.9 (10-20); Blood Urea Nitrogen 23 mg/dl (7-18); Calcium 9.8 mg/dl (8.5-10.1); Carbon Dioxide 24 mmol/L (21-32); Chloride 108 mmol/L (98-107); Creatinine Clr Calc Pharmacy 43.5 ml/min; Est GFR (African American) 66.8; Est GFR (Non-African American) 57.7; Glucose 205 mg/dl (70-99); Lipase 150 U/L (73-393); Potassium 3.5 mmol/L (3.5-5.1); Sodium 140 mmol/L (136-145)
[2020-12-17 19:32] LABS: Albumin Globulin Ratio 0.8 (0.9-2); Alkaline Phosphatase 86 U/L (45-117); Bilirubin,Total 0.3 mg/dl (0.2-1); Globulin 4.7 gm/dl (2.5-4.0); Total Protein 8.5 gm/dl (6.4-8.2); Troponin I < 0.015 ng/ml (0-0.045)
--- NOTE | 2020-12-17 20:02 | XRay Report ---
XR chest 1V portable HISTORY: Atypical Chest Pain COMPARISON: Chest 10/30/2020. FINDINGS: The lungs are clear. Cardiac silhouette is normal in size. No pleural effusions. No pneumot horax. IMPRESSION: No acute process. ACT 112: Negative or not required by law. Electronically signed by: Prince Mckay M.D. 12/17/2020 8:01 PM
[2020-12-17 20:12] LABS: D Dimer 290 ug/L FEU (0-500)
[2020-12-17 20:37] LABS: Influenza A virus by PCR Negative (Neg); Influenza B virus by PCR Negative (Neg); RSV by PCR Negative (Neg); SARS CoV2 RNA(COVID-19) InHosp NEGATIVE (Negative)
[2020-12-17] MEDS ORDERED: ONDANSETRON INJ 2 MG/ML 2 ML VIAL IV STA (21:08)
[2020-12-17] MEDS ORDERED: MoRPHine SULFATE 2 MG/ML CARP IV STA (21:08)
[2020-12-17] MEDS ORDERED: methylPREDNISolone 20 MG in SYRINGE 0 ML IV STA (22:24)
[2020-12-17] MEDS ORDERED: MAGNESIUM SULFATE / D5W 1 GM/100 ML BAG IV ONE (22:25)
[2020-12-17] MEDS ORDERED: POTASSIUM CHLORIDE 10 MEQ TABCR PO STA (22:25)
[2020-12-17 22:35] LABS: Magnesium 1.9 mg/dl (1.8-2.4)
[2020-12-17] MEDS ORDERED: XOPENEX/ATROVENT 1.25mg/0.5MG NEB COMBO NEB STA (22:48)
[2020-12-17] MEDS ORDERED: LEVALBUTEROL 1.25MG/0.5ML NEB INH STA (22:49)
[2020-12-17] MEDS ORDERED: IPRATROPIUM BROMIDE NEB SOLN 0.02% 2.5 ML VIAL INH STA (22:49)
[2020-12-17] MEDS ORDERED: KETOROLAC TROMETHAMINE 15 MG/ML VIAL IV ONE (22:49)
[2020-12-17] MEDS ORDERED: SODIUM CHLORIDE 0.9% 500 ML IV ONE (22:51)
[2020-12-17] MEDS ORDERED: traMADol HCL 50 MG TABLET PO PRN (22:52)
[2020-12-17] MEDS ORDERED: ACETAMINOPHEN 325 MG TAB PO PRN (22:52)
[2020-12-17] MEDS ORDERED: LORazepam 0.25 MG/0.5 ML VIAL IV PRN (23:02)
[2020-12-17] MEDS ORDERED: NITROGLYCERIN SL 0.4 MG/TAB TAB SL STA (23:49)
--- NOTE | 2020-12-17 23:50 | History & Physical Report ---
Date of Service December 17, 2020 Assessment & Plan (1) Chest pain: Possibly from uncontrolled hypertension, anxiety contributory History hypertension not on medications History diastolic dysfunction on recent TTE Rule out ACS given relief w/ nitroglycerin at the ER Complicated bronchitis, improving cough symptoms with recent outpatient regimen GERD, stable on regimen prediabetes, hemoglobin A1c of 5.01 November 2020 OBS PCU Initiate lisinopril Anxiolytic as needed Follow troponin Cardiology consult RE chest pain relieved by nitroglycerin Aspirin for CAD prevention until ACS ruled out Complete doxycycline and prednisone course for complicated bronchitis DVT prophylaxis. Lovenox subcu Full code Text document was generated using [employer] voice recognition software. It may contain grammatical or spelling errors. Kindly contact undersigned for clarification of any documentation item in question. History of Present Illness Chief Complaint: Chest tightness Primary Care Provider: Syl Martinez, History obtained from patient, family, and records. Medical history significant for hypertension, hyperlipidemia, GERD, chronic bronchitis as per records, prediabetes. Recent confinement last month for atypical chest pain. Nonischemic stress echo during confinement. No further cardiac testing as per cardiology. PCP follow-up for hypertension management given hypertensive BP response to exercise as per documentation. 3 days ago patient had a head cold followed by chest congestion, cough productive of junky sputum. Patient noted recurrence of central chest tightness without radiation with some shortness of breath reminiscent of last month's admission. Patient seen at urgent care center yesterday. Outpatient COVID-19 test was negative. Patient prescribed doxycycline and prednisone for possible bronchitis as per patient. Improving cough symptoms although patient noted persistence of chest tightness. Chest tightness somewhat worsening. Patient heart rate noted to be elevated at home in the 110s which patient attributed to inhaler Rx for bronchitis. Chest tightness improved after nitroglycerin administration at the ER. MEDICAL HISTORY: As above. SURGERIES: bladder surgery, tonsillectomy FAMILY HISTORY: Heart disease. Breast cancer, brain aneurysm, COPD PERSONAL AND SOCIAL HISTORY: Nonsmoker. No chronic intake of alcoholic beverages. 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 Allergies Allergy/AdvReac Type Severity Reaction Status Date / Time tree and shrub pollen Allergy Intermediate sneezing/itchy Verified 12/17/20 21:30 watery eyes lillies Allergy Intermediate sneezing/itchy Uncoded 12/17/20 21:30 watery eyes Home Medications Medication Instructions Recorded Confirmed Type albuterol sulfate 2 puff INHALATION Q6H PRN 12/17/20 12/17/20 History doxycycline hyclate 100 mg PO BID 12/17/20 12/17/20 History prednisone 20 mg PO DAILY 12/17/20 12/17/20 History Past Med/Surg History Medical History (Updated 12/18/20 @ 00:55 by Raúl Hall MD) Chronic bronchitis Hypertension Kidney infection Respiratory failure, acute Surgical History History of bladder surgery Social History Smoking Status: Never smoker Second Hand Exposure: No; Do You Dip or Chew Tobacco: No; Tobacco Cessation Education Requested by Patient: No Hx Alcohol Use: No Hx Substance Use: No Preferred Language: Cypriot Communication Ability: Effective Tubing Mill Setter Required: No Beliefs That Will Affect Care: None Current Living Situation: Spouse Other Information That Helps Us Care for You: No Feels Safe at Home: Yes Safety Concerns: Feels Safe At This Time Assistive Devices: Glasses Review of Systems Review of Systems: As per HPI, all 10 systems reviewed, all other ROS negative Physical Exam Physical Exam: GENERAL: Slightly anxious, no respiratory distress SKIN: Normal color, warm HEENT: Bespectacled, pink palpebral conjunctivae, no ptosis, dry buccal mucosa NECK : Supple, no tenderness CHEST : Decreased breath sounds, expiratory wheezes, no tenderness HEART : RRR, no obvious murmurs ABDOMEN: No abdominal distention, nontender EXTREMITIES : No LE swelling/tenderness, no other conspicuous deformities noted NEUROLOGIC : Coherent, no facial asymmetry, no other gross focality Results & Data Results & Data ([facility]) Vital Signs (Past 12 Hours) Vital Signs Temp Pulse Pulse Resp BP Pulse Ox 12/17/20 23:30 93 H 22 151/81 H 94 12/17/20 23:16 89 20 92 12/17/20 23:00 80 20 155/79 H 94 12/17/20 22:30 81 17 144/74 H 94 12/17/20 22:00 80 18 135/81 95 12/17/20 21:30 86 18 136/81 92 12/17/20 21:00 97 H 22 142/81 H 94 12/17/20 20:30 96 H 22 164/86 H 94 12/17/20 20:00 100 H 19 154/84 H 93 12/17/20 18:57 36.8 C 109 H 18 167/94 H 97 Laboratory Results Laboratory Results WBC 5.78 K/uL (4.8-10.8) 12/17/20 Unknown RBC 4.37 M/uL (4.2-5.4) 12/17/20 Unknown Hgb 13.6 g/dL (12.0-16.0) 12/17/20 Unknown Hct 40.1 % (37-47) 12/17/20 Unknown MCV 91.8 fL (80-100) 12/17/20 Unknown MCH 31.1 pg (25-34) 12/17/20 Unknown MCHC 33.9 g/dL (32-36) 12/17/20 Unknown RDW Std Deviation 43.5 fL (36.4-46.3) 12/17/20 Unknown RDW Coeff of Shannan 12.9 % (11.5-14.5) 12/17/20 Unknown Plt Count 323 K/uL (130-400) 12/17/20 Unknown MPV 9.5 fL (7.4-10.4) 12/17/20 Unknown Immature Gran % (Auto) 0.3 % 12/17/20 Unknown Neut % (Auto) 86.5 % 12/17/20 Unknown Lymph % (Auto) 8.0 % 12/17/20 Unknown [place] % (Auto) 5.0 % 12/17/20 Unknown Eos % (Auto) 0.0 % 12/17/20 Unknown Baso % (Auto) 0.2 % 12/17/20 Unknown Neut # (Auto) 5.00 K/uL (1.4-6.5) 12/17/20 Unknown Lymph # (Auto) 0.46 K/uL (1.2-3.4) L 12/17/20 Unknown [place] # (Auto) 0.29 K/uL (0.11-0.59) 12/17/20 Unknown Eos # (Auto) 0.00 K/uL (0-0.5) 12/17/20 Unknown Baso # (Auto) 0.01 K/uL (0-0.2) 12/17/20 Unknown Immature Gran # (Auto) 0.02 K/uL (0.00-0.02) 12/17/20 Unknown D-Dimer Cancelled 12/17/20 Unknown Sodium 140 mmol/L (136-145) 12/17/20 Unknown Potassium 3.5 mmol/L (3.5-5.1) 12/17/20 Unknown Chloride 108 mmol/L (98-107) H 12/17/20 Unknown Carbon Dioxide 24 mmol/L (21-32) 12/17/20 Unknown Anion Gap 8.0 (3-11) 12/17/20 Unknown BUN 23 mg/dl (7-18) H 12/17/20 Unknown Creatinine 1.02 mg/dl (0.6-1.2) 12/17/20 Unknown Est Cr Clr Drug Dosing 43.5 ml/min 12/17/20 Unknown Est GFR ( Amer) 66.8 12/17/20 Unknown Est GFR (Non-Af Amer) 57.7 12/17/20 Unknown BUN/Creatinine Ratio 22.9 (10-20) H 12/17/20 Unknown Glucose 205 mg/dl (70-99) H 12/17/20 Unknown Calcium 9.8 mg/dl (8.5-10.1) 12/17/20 Unknown Magnesium 1.9 mg/dl (1.8-2.4) 12/17/20 Unknown Total Bilirubin 0.3 mg/dl (0.2-1) 12/17/20 Unknown AST 14 U/L (15-37) L 12/17/20 Unknown ALT 39 U/L (12-78) 12/17/20 Unknown Alkaline Phosphatase 86 U/L (45-117) 12/17/20 Unknown Troponin I < 0.015 ng/ml (0-0.045) 12/17/20 Unknown Total Protein 8.5 gm/dl (6.4-8.2) H 12/17/20 Unknown Albumin 3.8 gm/dl (3.4-5.0) 12/17/20 Unknown Globulin 4.7 gm/dl (2.5-4.0) H 12/17/20 Unknown Albumin/Globulin Ratio 0.8 (0.9-2) L 12/17/20 Unknown Lipase 150 U/L (73-393) 12/17/20 Unknown COVID-19 Eval Order CovFluRsv at [facility] 12/17/20 19:50 SARS-CoV-2 (PCR) NEGATIVE (Negative) 12/17/20 19:50 Influenza Type A (PCR) Negative (Neg) 12/17/20 19:50 Influenza Type B (PCR) Negative (Neg) 12/17/20 19:50 RSV (RT-PCR) Negative (Neg) 12/17/20 19:50 Diagnostic Findings Chest x-ray : No acute process. EKG as per my interpretation : Rate 115, sinus tachycardia, normal axis, incomplete RBBB, T wave abnormality septal leads (1) Chest pain Chest pain type: unspecified Qualified Code(s): R07.9 - Chest pain, unspecified
[2020-12-17] MEDS ORDERED: NITROGLYCERIN SL 0.4 MG/TAB TAB ONE (23:53)
[2020-12-18] MEDS ORDERED: ASPIRIN 81 MG CHEW PO STA (00:07)
[2020-12-18] MEDS ORDERED: MoRPHine SULFATE 2 MG/ML CARP IV PRN (00:28)
[2020-12-18] MEDS: IPRATROPIUM BROMIDE NEB SOLN 0.02% 2.5 ML VIAL INH SCH ×2 (00:49→07:23)
[2020-12-18] MEDS: LEVALBUTEROL 1.25MG/0.5ML NEB INH SCH ×2 (00:49→07:23)
[2020-12-18] MEDS ORDERED: XOPENEX/ATROVENT 1.25mg/0.5MG NEB COMBO NEB SCH (01:00)
[2020-12-18] MEDS ORDERED: lisinopril 2.5 MG TAB PO ONE (02:10)
[2020-12-18 05:57] LABS: Hematocrit (blood only) 36.7 % (37-47); Hemoglobin 12.4 g/dL (12.0-16.0); Immature Granulocytes # (auto) 0.02 K/uL (0.00-0.02); Immature Granulocytes % (auto) 0.2 %; Lymphocytes # (auto) 0.46 K/uL (1.2-3.4); Lymphocytes % (auto) 5.5 %; Mean Corpuscular Hemoglobin 31.4 pg (25-34); Mean Corpuscular Hgb Conc 33.8 g/dL (32-36); Mean Corpuscular Volume 92.9 fL (80-100); Mean Platelet Volume 9.5 fL (7.4-10.4); Monocytes # (auto) 0.16 K/uL (0.11-0.59); Monocytes % (auto) 1.9 %; Neutrophils # (auto) 7.74 K/uL (1.4-6.5); Neutrophils % (auto) 92.4 %; Platelet Count 295 K/uL (130-400); RDW Coefficient of Variation 13.1 % (11.5-14.5); RDW Standard Deviation 44.9 fL (36.4-46.3); Red Blood Count 3.95 M/uL (4.2-5.4); White Blood Count 8.38 K/uL (4.8-10.8)
[2020-12-18 06:07] LABS: Partial Thromboplastin Ratio 0.9; Partial Thromboplastin Time 24.8 Seconds (21.0-31.0)
[2020-12-18 06:39] LABS: BUN Creatinine Ratio 25.9 (10-20); Blood Urea Nitrogen 20 mg/dl (7-18); Calcium 9.1 mg/dl (8.5-10.1); Carbon Dioxide 24 mmol/L (21-32); Chloride 111 mmol/L (98-107); Creatinine Clr Calc Pharmacy 58.4 ml/min; Est GFR (African American) 95.4; Est GFR (Non-African American) 82.3; Glucose 147 mg/dl (70-99); Potassium 4.5 mmol/L (3.5-5.1); Sodium 140 mmol/L (136-145); Troponin I < 0.015 ng/ml (0-0.045)
--- NOTE | 2020-12-18 07:04 | Hospitalist Progress Note ---
Date of Service December 18, 2020 Assessment & Plan (1) Chest pain: Possibly from uncontrolled hypertension, anxiety contributory Still c Mild CP History hypertension not on medications-BP 123/67 History diastolic dysfunction on recent TTE Rule out ACS given relief w/nitroglycerin at the ER Complicated bronchitis, improving cough symptoms with recent outpatient regimen GERD, stable on regimen prediabetes, hemoglobin A1c of 5.01 November 2020 Continue lisinopril Anxiolytic as needed Troponins are negative Cardiology consult RE chest pain relieved by nitroglycerin Aspirin for CAD prevention until ACS ruled out Complete doxycycline and prednisone course for complicated bronchitis Add ATC Motrin, Possible CP from Coughing Check CTA Chest DVT prophylaxis. Lovenox subcu Full code Labs Checked ROS-No Headache, No Visual Changes, No Nausea, No Vomiting, No Fever, No Chills, No Neck Pain or Stiffness, + Chest Pain, No Palpitations, No SOB, No GALAN, No Cough, No Sputum, No Wheezing, No Abdominal Pain, No Diarrhea, No Hematemesis, No Hemoptysis, No Unexpected Weight Loss, No Flank pain, No Melena, No Hematochezia, No Frequency, No Urgency, No Burning, No Hematuria, No Rashes, No Diaphoresis. Appetite is Normal Physical Exam Gen-AAO x 3, NAD, Afebrile, pleasant Head-NCAT, EOMI, PERRLA, Anicteric Sclera, No Posterior Pharyngeal Erythema Neck-Supple, No JVD, No Thyromegaly, No Masses, No LAD, No Bruits Lungs-Clear to Auscultation Bilaterally, No Rales, No Rhonchi, No Wheezing, No Crepitus Chest-No S4, +S1, +S2, No S3, No Murmurs, No Rubs, No Gallops, No Ectopy Abdomen-Soft, Bowel Sounds Present, Non Tender, Non Distended, No Hepatomegaly, No Splenomegaly, No Palpable Masses, No Rebound, No Rigidity, No Guarding Musculoskeletal-Full Range of Motion Bilaterally, No CVAT Extremities-No Cyanosis, No Clubbing, No Edema Nuero-Cranial Nerves II-XII grossly intact, Motor WNL, DTRs WNL, Strength WNL, Non Focal Psych-Normal Mood Admission and Anticipated Discharge Date Admission Date: December 17, 2020 Results & Data Results & Data ([facility]) Vital Signs (Past 12 Hours) Vital Signs Temp Pulse Pulse Pulse Resp BP BP 12/18/20 05:34 69 13 123/67 12/18/20 04:33 84 11 L 139/63 12/18/20 03:33 86 11 L 135/57 L 12/18/20 02:33 92 H 15 131/58 L 12/18/20 01:33 82 17 127/70 12/18/20 00:33 36.6 C 80 21 166/98 H 12/18/20 00:31 36.6 C 90 22 166/98 H 12/18/20 00:00 87 13 119/76 12/17/20 23:30 93 H 22 151/81 H 12/17/20 23:16 89 20 12/17/20 23:00 80 20 155/79 H 12/17/20 22:30 81 17 144/74 H 12/17/20 22:00 80 18 135/81 12/17/20 21:30 86 18 136/81 12/17/20 21:00 97 H 22 142/81 H 12/17/20 20:30 96 H 22 164/86 H 12/17/20 20:00 100 H 19 154/84 H Pulse Ox 12/18/20 05:34 92 12/18/20 04:33 94 12/18/20 03:33 92 12/18/20 02:33 93 12/18/20 01:33 96 12/18/20 00:33 12/18/20 00:31 95 12/18/20 00:00 93 12/17/20 23:30 94 12/17/20 23:16 92 12/17/20 23:00 94 12/17/20 22:30 94 12/17/20 22:00 95 12/17/20 21:30 92 12/17/20 21:00 94 12/17/20 20:30 94 12/17/20 20:00 93 (1) Chest pain Chest pain type: unspecified Qualified Code(s): R07.9 - Chest pain, unspecified
[2020-12-18] MEDS ORDERED: OPTIRAY 320 125ml IV ONE (07:30)
[2020-12-18] MEDS ORDERED: ENOXAPARIN INJ 30 MG/0.3 ML SYR SQ SCH (09:00)
[2020-12-18] MEDS ORDERED: DOXYCYCLINE HYCLATE 100 MG CAP PO SCH (09:00)
[2020-12-18] MEDS ORDERED: predniSONE 20 MG TAB PO SCH (09:00)
[2020-12-18] MEDS: IBUPROFEN 200 MG TAB PO SCH ×2 (09:15→12:28)
[2020-12-18] MEDS ORDERED: IPRATROPIUM BROMIDE NEB SOLN 0.02% 2.5 ML VIAL INH PRN (09:30)
[2020-12-18] MEDS ORDERED: LEVALBUTEROL 1.25MG/0.5ML NEB INH PRN (09:31)
--- NOTE | 2020-12-18 10:57 | Cardiology Consultation ---
Date of Consultation December 18, 2020 Assessment & Plan (1) Atypical chest pain: The patient's chest pain is atypical. She had a recent exercise stress test that was negative. I do not believe any additional cardiac testing is indicated at this time. (2) GERD (gastroesophageal reflux disease): The patient does have a history of reflux and perhaps a started new medications has caused a flare. The sublingual nitroglycerin that improved her chest pain in the ER may have resolved esophageal spasm. I would consider putting her on a PPI at least until her bronchitis has improved and she is off the steroids and inhalers. (3) Bronchitis: I would continue treatment for the bronchitis that was started as an outpatient. From a cardiac standpoint I believe the patient may be discharged per the medicine service. History of Present Illness Attending Physician: Cedrick Banegas DO History of Present Illness This is a 65-year-old female who was well-known to our service due to previous admission approximately a month ago for atypical chest pain. At that time she had a negative exercise stress echocardiogram and was allowed to return home. She was doing well up until a week to 10 days ago when she developed an upper respiratory tract infection. It became severe enough that she was seen at our urgent care. She had a negative Covid test. She was started on steroids and inhalers and returned home. She was scared to start the inhalers and waited a few days but then her symptoms worsened and she used her inhaler and soon after she developed chest discomfort which he describes as severe. The patient called 911 and brought into the emergency department where she was given 1 sublingual nitroglycerin with relief. She does have a history of GERD. She has been coughing quite a bit recently, but there is no pleuritic component to her chest pain. She is comfortable today. Her EKGs are essentially normal. Her troponins have been negative since admission. Allergies Allergy/AdvReac Type Severity Reaction Status Date / Time tree and shrub pollen Allergy Intermediate sneezing/itchy Verified 12/17/20 21:30 watery eyes lillies Allergy Intermediate sneezing/itchy Uncoded 12/17/20 21:30 watery eyes Home Medications Medication Instructions Recorded Confirmed Type albuterol sulfate 2 puff INHALATION Q6H PRN 12/17/20 12/17/20 History doxycycline hyclate 100 mg PO BID 12/17/20 12/17/20 History prednisone 20 mg PO DAILY 12/17/20 12/17/20 History Patient History Medical History (Updated 12/18/20 @ 11:00 by Gurdeep Amaral DO) Chronic bronchitis Hypertension Kidney infection Respiratory failure, acute Surgical History History of bladder surgery Social History Smoking Status: Never smoker Second Hand Exposure: No; Do You Dip or Chew Tobacco: No; Tobacco Cessation Education Requested by Patient: No Hx Alcohol Use: No Hx Substance Use: No Preferred Language: Lao Communication Ability: Effective 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 Physical Exam Physical Exam: General: no acute distress and stated age Head: normocephalic, no masses, lesions, tenderness or abnormalities Eyes: conjunctiva are pink and non-injected, sclera clear Neck: supple, no adenopathy, no bruits, normal jugular venous pulse, no hep atojugular reflux Chest: normal shape and normal respiratory effort Lungs: clear to auscultation and percussion Cardiac Exam: - regular rate & rhythm, no murmurs gallops or rubs - normal S1, normal S2 Pulses: 2(+) throughout Abdomen: abdomen soft, non-tender, no abnormal masses and no hepatosplenomegaly Musculoskeletal: no gait disturbance, no joint inflammation, no deforming arthritis Extremities: no edema and no cyanosis Neuro: grossly normal exam Results & Data ([facility]) Vital Signs (Past 12 Hours) Vital Signs Temp Pulse Pulse Pulse Resp BP BP 12/18/20 07:23 86 16 12/18/20 07:19 36.6 C 75 18 124/62 12/18/20 05:34 69 13 123/67 12/18/20 04:33 84 11 L 139/63 12/18/20 03:33 86 11 L 135/57 L 12/18/20 02:33 92 H 15 131/58 L 03/28/21 01:33 82 17 127/70 03/28/21 00:33 36.6 C 80 21 166/98 H 12/18/20 00:31 36.6 C 90 22 166/98 H 12/18/20 00:00 87 13 119/76 12/17/20 23:30 93 H 22 151/81 H 12/17/20 23:16 89 20 12/17/20 23:00 80 20 155/79 H Pulse Ox 12/18/20 07:23 94 12/18/20 07:19 94 12/18/20 05:34 92 12/18/20 04:33 94 12/18/20 03:33 92 12/18/20 02:33 93 12/18/20 01:33 96 12/18/20 00:33 12/18/20 00:31 95 12/18/20 00:00 93 12/17/20 23:30 94 12/17/20 23:16 92 12/17/20 23:00 94 Laboratory Results Laboratory Results - last 24 hr 12/17/20 12/17/20 12/17/20 19:47 19:50 19:50 WBC RBC Hgb Hct MCV MCH MCHC RDW Std Deviation RDW Coeff of Shannan Plt Count MPV Immature Gran % (Auto) Neut % (Auto) Lymph % (Auto) Brown % (Auto) Eos % (Auto) Baso % (Auto) Neut # (Auto) Lymph # (Auto) Brown # (Auto) Eos # (Auto) Baso # (Auto) Immature Gran # (Auto) APTT PTT Ratio D-Dimer 290 Sodium Potassium Chloride Carbon Dioxide Anion Gap BUN Creatinine Est Cr Clr Drug Dosing Est GFR ( Amer) Est GFR (Non-Af Amer) BUN/Creatinine Ratio Glucose Calcium Magnesium Total Bilirubin AST ALT Alkaline Phosphatase Troponin I Total Protein Albumin Globulin Albumin/Globulin Ratio Lipase Nasal Screen MRSA (PCR) COVID-19 Eval Order CovFluRsv at [facility] SARS-CoV-2 (PCR) NEGATIVE Influenza Type A (PCR) Negative Influenza Type B (PCR) Negative RSV (RT-PCR) Negative 12/17/20 12/17/20 12/17/20 22:57 Unknown Unknown WBC 5.78 RBC 4.37 Hgb 13.6 Hct 40.1 MCV 91.8 MCH 31.1 MCHC 33.9 RDW Std Deviation 43.5 RDW Coeff of Shannan 12.9 Plt Count 323 MPV 9.5 Immature Gran % (Auto) 0.3 Neut % (Auto) 86.5 Lymph % (Auto) 8.0 Brown % (Auto) 5.0 Eos % (Auto) 0.0 Baso % (Auto) 0.2 Neut # (Auto) 5.00 Lymph # (Auto) 0.46 L Brown # (Auto) 0.29 Eos # (Auto) 0.00 Baso # (Auto) 0.01 Immature Gran # (Auto) 0.02 APTT PTT Ratio D-Dimer Cancelled Sodium Potassium Chloride Carbon Dioxide Anion Gap BUN Creatinine Est Cr Clr Drug Dosing Est GFR ( Amer) Est GFR (Non-Af Amer) BUN/Creatinine Ratio Glucose Calcium Magnesium Total Bilirubin AST ALT Alkaline Phosphatase Troponin I < 0.015 Total Protein Albumin Globulin Albumin/Globulin Ratio Lipase Nasal Screen MRSA (PCR) COVID-19 Eval Order SARS-CoV-2 (PCR) Influenza Type A (PCR) Influenza Type B (PCR) RSV (RT-PCR) 12/17/20 12/18/20 12/18/20 Unknown 00:30 05:12 WBC 8.38 RBC 3.95 L Hgb 12.4 Hct 36.7 L MCV 92.9 MCH 31.4 MCHC 33.8 RDW Std Deviation 44.9 RDW Coeff of Shannan 13.1 Plt Count 295 MPV 9.5 Immature Gran % (Auto) 0.2 Neut % (Auto) 92.4 Lymph % (Auto) 5.5 Brown % (Auto) 1.9 Eos % (Auto) 0.0 Baso % (Auto) 0.0 Neut # (Auto) 7.74 H Lymph # (Auto) 0.46 L Brown # (Auto) 0.16 Eos # (Auto) 0.00 Baso # (Auto) 0.00 Immature Gran # (Auto) 0.02 APTT PTT Ratio D-Dimer Sodium 140 Potassium 3.5 Chloride 108 H Carbon Dioxide 24 Anion Gap 8.0 BUN 23 H Creatinine 1.02 Est Cr Clr Drug Dosing 43.5 Est GFR ( Amer) 66.8 Est GFR (Non-Af Amer) 57.7 BUN/Creatinine Ratio 22.9 H Glucose 205 H Calcium 9.8 Magnesium 1.9 Total Bilirubin 0.3 AST 14 L ALT 39 Alkaline Phosphatase 86 Troponin I < 0.015 Total Protein 8.5 H Albumin 3.8 Globulin 4.7 H Albumin/Globulin Ratio 0.8 L Lipase 150 Nasal Screen MRSA (PCR) Negative COVID-19 Eval Order SARS-CoV-2 (PCR) Influenza Type A (PCR) Influenza Type B (PCR) RSV (RT-PCR) 12/18/20 12/18/20 05:12 05:12 WBC RBC Hgb Hct MCV MCH MCHC RDW Std Deviation RDW Coeff of Shannan Plt Count MPV Immature Gran % (Auto) Neut % (Auto) Lymph % (Auto) Brown % (Auto) Eos % (Auto) Baso % (Auto) Neut # (Auto) Lymph # (Auto) Brown # (Auto) Eos # (Auto) Baso # (Auto) Immature Gran # (Auto) APTT 24.8 PTT Ratio 0.9 D-Dimer Sodium 140 Potassium 4.5 D Chloride 111 H Carbon Dioxide 24 Anion Gap 5.0 BUN 20 H Creatinine 0.76 Est Cr Clr Drug Dosing 58.4 Est GFR ( Amer) 95.4 Est GFR (Non-Af Amer) 82.3 BUN/Creatinine Ratio 25.9 H Glucose 147 H Calcium 9.1 Magnesium Total Bilirubin AST ALT Alkaline Phosphatase Troponin I < 0.015 Total Protein Albumin Globulin Albumin/Globulin Ratio Lipase Nasal Screen MRSA (PCR) COVID-19 Eval Order SARS-CoV-2 (PCR) Influenza Type A (PCR) Influenza Type B (PCR) RSV (RT-PCR) Diagnostic Findings EKGs are essentially within normal limits. Medications Administered Current Inpatient Medications Acetaminophen (Acetaminophen 325 Mg Tab) 650 mg PO Q6H PRN PRN Reason: Fever Stop: 01/16/21 22:51 Aspirin (Aspirin 81 Mg Ectab) 81 mg PO QAM [facility] Stop: 01/18/21 08:59 Doxycycline Hyclate (Doxycycline Hyclate 100 Mg Cap) 100 mg PO BID [facility] Stop: 12/25/20 08:59 Last Admin: 12/18/20 09:16 Dose: 100 mg Documented by: Enoxaparin Sodium (Enoxaparin Inj 30 Mg/0.3 Ml Syr) 30 mg SQ QAM [facility] Stop: 01/17/21 08:59 Last Admin: 12/18/20 09:19 Dose: Not Given Documented by: Lorazepam (Ativan) 0.25 mg in 0.5 mls @ 0.5 mls/min IV Q4H PRN PRN Reason: Anxiety Stop: 01/16/21 23:01 Ibuprofen (Ibuprofen 200 Mg Tab) 400 mg PO Q4 [facility] Stop: 01/17/21 07:59 Last Admin: 12/18/20 09:15 Dose: Not Given Documented by: Ipratropium Nenana (Ipratropium Nenana Neb Soln 0.02% 2.5 Ml Vial) 0.5 mg INH Q6R PRN PRN Reason: Shortness Of Breath Or Wheezing Stop: 01/17/21 00:59 Levalbuterol HCl (Levalbuterol 1.25mg/0.5ml Neb) 1.25 mg INH Q6R PRN PRN Reason: Shortness Of Breath Or Wheezing Stop: 01/17/21 00:59 Lisinopril (Lisinopril 2.5 Mg Tab) 2.5 mg PO QAM [facility] Stop: 01/18/21 08:59 Morphine Sulfate (Morphine Sulfate 2 Mg/Ml Carp) 2 mg IV Q3H PRN PRN Reason: Pain Stop: 01/01/21 00:27 Prednisone (Prednisone 20 Mg Tab) 20 mg PO DAILY [facility] Stop: 01/17/21 08:59 Last Admin: 12/18/20 09:16 Dose: 20 mg Documented by: Tramadol HCl (Tramadol Hcl 50 Mg Tablet) 25 - 50 mg PO Q4H PRN PRN Reason: Pain Stop: 01/16/21 22:51
--- NOTE | 2020-12-18 11:39 | CT Scan Report ---
CT angio chest PE protocol CT DOSE: 239.69 mGy.cm HISTORY: 65 years-old Female with CP, elevated DDimer. Acute chest pain with elevated d-dimer TECHNIQUE: Multiple CTA images of the chest were obtained after the intravenous administration of 118 ml Optiray 320. Coronal and sagittal MIPS were obtained from the axial data set and were submitted for review. All measurements were obtained according to NASCET criteria. A dose lowering technique w as utilized adhering to the principles of ALARA. COMPARISON: CTA chest 10/31/2020, CT abdomen and pelvis 08/20/2019. FINDINGS: CTA: Heart is normal in size. There is no pericardial effusion. Atheromatous plaque of the thoracic aorta. No thoracic aortic aneurysm or dissection. Patency of the great vessels. Reflux of contrast into the IVC. The pulmonary arterial tree is opacified to the level of the subsegmental branches and demonstr ates no filling defects to suggest thromboembolic disease. CT CHEST: Unremarkable thyroid. No adenopathy. No pneumothorax, pleural effusion, airspace consolidation or ove rt pulmonary edema. Mild linear subsegmental bibasilar atelectasis. No suspicious pulmonary nodules o r masses. Mild bibasilar mucous plugging with bronchial wall thickening redemonstrated. No pneumoperitoneum. Mild distal esophageal wall thickening with tiny hiatal hernia. Indeterminate hy podense 9 mm lesion of the right hepatic lobe, unchanged from 2019 and likely benign. Unremarkable so ft tissues. There is no acute fracture. IMPRESSION: 1. No pulmonary emboli. 2. No adenopathy, pleural effusion or airspace consolidation to suggest pneumonia. 3. Mild bibasilar mucous plugging with bronchial wall thickening suggestive of bronchitis versus reac tive airway disease. 3. Mild bibasilar atelectasis. ACT 112: Negative or not required by law. The above report was generated using voice recognition software. It may contain grammatical, syntax o r spelling errors. Electronically signed by: Rubin Santos M.D. 12/18/2020 11:38 AM
--- NOTE | 2020-12-18 13:37 | Discharge Summary ---
Date of Service December 18, 2020 Admission HPI Per Admitting Provider History obtained from patient, family, and records. Medical history significant for hypertension, hyperlipidemia, GERD, chronic bronchitis as per records, prediabetes. Recent confinement last month for atypical chest pain. Nonischemic stress echo during confinement. No further cardiac testing as per cardiology. PCP follow-up for hypertension management given hypertensive BP response to exercise as per documentation. 3 days ago patient had a head cold followed by chest congestion, cough productive of junky sputum. Patient noted recurrence of central chest tightness without radiation with some shortness of breath reminiscent of last month's admission. Patient seen at urgent care center yesterday. Outpatient COVID-19 test was negative. Patient prescribed doxycycline and prednisone for possible bronchitis as per patient. Improving cough symptoms although patient noted persistence of chest tightness. Chest tightness somewhat worsening. Patient heart rate noted to be elevated at home in the 110s which patient attributed to inhaler Rx for bronchitis. Chest tightness improved after nitroglycerin administration at the ER. MEDICAL HISTORY: As above. SURGERIES: bladder surgery, tonsillectomy FAMILY HISTORY: Heart disease. Breast cancer, brain aneurysm, COPD PERSONAL AND SOCIAL HISTORY: Nonsmoker. No chronic intake of alcoholic beverages. Prior work as a [employer]. Admission Exam Per Admitting Provider GENERAL: Slightly anxious, no respiratory distress SKIN: Normal color, warm HEENT: Bespectacled, pink palpebral conjunctivae, no ptosis, dry buccal mucosa NECK : Supple, no tenderness CHEST : Decreased breath sounds, expiratory wheezes, no tenderness HEART : RRR, no obvious murmurs ABDOMEN: No abdominal distention, nontender EXTREMITIES : No LE swelling/tenderness, no other conspicuous deformities noted NEUROLOGIC : Coherent, no facial asymmetry, no other gross focality Principal Diagnosis Chest Pain Bronchitis Discharge Exam See below Discharge Data Allergies Allergy/AdvReac Type Severity Reaction Status Date / Time tree and shrub pollen Allergy Intermediate sneezing/itchy Verified 12/17/20 21:30 watery eyes lillies Allergy Intermediate sneezing/itchy Uncoded 12/17/20 21:30 watery eyes Consultations 12/17/20 22:16 ED Decision to Admit Stat 12/18/20 00:07 Consult Cardiology Routine Ordered Studies 12/18/20 07:09 CT angio chest PE protocol Routine Current Diagnoses Chest pain, unspecified (12/17/20) Allergies tree and shrub pollen Allergy (Intermediate, Verified 12/17/20 21:30) sneezing/itchy watery eyes lillies Allergy (Intermediate, Uncoded 12/17/20 21:30) sneezing/itchy watery eyes Height/Weight/Isolation Height 5 ft 2 in Weight 51.7 kg Chemistry 12/17/20 12/18/20 Unknown 05:12 Sodium 140 140 Potassium 3.5 4.5 D Chloride 108 H 111 H Carbon Dioxide 24 24 Anion Gap 8.0 5.0 BUN 23 H 20 H Creatinine 1.02 0.76 Glucose 205 H 147 H Hospital Course (1) Chest pain: Possibly from uncontrolled hypertension, anxiety contributory Still c Mild CP History hypertension not on medications-BP 123/67 History diastolic dysfunction on recent TTE Neg w/u for ACS, DC per Cardio Complicated bronchitis, improving cough symptoms with recent outpatient regimen GERD, stable on regimen prediabetes, hemoglobin A1c of 5.01 November 2020 Continue lisinopril Anxiolytic as needed Troponins are negative Complete doxycycline and prednisone course for complicated bronchitis Add ATC Motrin, Possible CP from Coughing CTA Chest neg for PE DC home today ROS-No Headache, No Visual Changes, No Nausea, No Vomiting, No Fever, No Chills, No Neck Pain or Stiffness, + Chest Pain, No Palpitations, No SOB, No GALAN, No Cough, No Sputum, No Wheezing, No Abdominal Pain, No Diarrhea, No Hematemesis, No Hemoptysis, No Unexpected Weight Loss, No Flank pain, No Melena, No Hematochezia, No Frequency, No Urgency, No Burning, No Hematuria, No Rashes, No Diaphoresis. Appetite is Normal Physical Exam Gen-AAO x 3, NAD, Afebrile, pleasant Head-NCAT, EOMI, PERRLA, Anicteric Sclera, No Posterior Pharyngeal Erythema Neck-Supple, No JVD, No Thyromegaly, No Masses, No LAD, No Bruits Lungs-Clear to Auscultation Bilaterally, No Rales, No Rhonchi, No Wheezing, No Crepitus Chest-No S4, +S1, +S2, No S3, No Murmurs, No Rubs, No Gallops, No Ectopy Abdomen-Soft, Bowel Sounds Present, Non Tender, Non Distended, No Hepatomegaly, No Splenomegaly, No Palpable Masses, No Rebound, No Rigidity, No Guarding Musculoskeletal-Full Range of Motion Bilaterally, No CVAT Extremities-No Cyanosis, No Clubbing, No Edema Nuero-Cranial Nerves II-XII grossly intact, Motor WNL, DTRs WNL, Strength WNL, Non Focal Psych-Normal Mood Total Time Total Time Spent Total Time Spent (In Minutes): 45 min Total Time Includes: Examination of the Patient, Discharge Planning, Medication Reconciliation and Communication With Other Providers Discharge Plan Discharge Items Patient Disposition: Home - Self-Care Reason For Visit: CP Discharge Diagnosis: Chest Pain Bronchitis Activity: Resume your previous activity Lifting: Gradually increase as tolerated Bathing: No limitations Sexual Activity: When tolerated Exercise/Sports: Gradually increase as tolerated Driving/Machine Use: No limitations Weightbearing: Full weightbearing Non-emergency contact: Primary Care Provider Call non-emergency contact if: you have any medication questions Follow-up/Referrals: Syl Martinez, [Primary Care Provider] - Diet: Regular Addtl Attending Provider Instructions: Take Motrin and/or Tylenol for the Chest pain, finish meds for your bronchitis Pending Studies at Discharge: No Stand-Alone Forms: My [employer], Smoking Cessation Medications and DC Order Prescriptions: Continued doxycycline hyclate 100 mg capsule 100 mg PO BID RF: 0 prednisone 20 mg tablet 20 mg PO DAILY RF: 0 albuterol sulfate 90 mcg/actuation HFA aerosol inhaler 2 puff INHALATION Q6H PRN (Reason: Shortness Of Breath Or Wheezing) RF: 0 Discharge Orders: Discharge Order (Routine); Ordered 12/18/20 Ordered By: Cedrick Banegas Admission Data Admit Date/Time: 12/17/20 23:52 Attending Provider: Cedrick Banegas Admit Provider: Remberto Dias Primary Care Provider: Syl Martinez Other Providers: Remberto Dias ; Yonny Parisi ; Filemon Mike ; Jam Egan ; Yovanny Muro ; Gurdeep Amaral ; Mani Marcus ; Mimi Rodrigues ; Nadia Montiel ; Jose Francisco Paul
--- NOTE | 2020-12-18 15:08 | Electrocardiogram Report ---
Test Reason : Blood Pressure : / mmHG Vent. Rate : 075 BPM Atrial Rate : 075 BPM P-R Int : 154 ms QRS Dur : 090 ms QT Int : 386 ms P-R-T Axes : 073 044 037 degrees QTc Int : 431 ms Normal sinus rhythm with sinus arrhythmia Possible Left atrial enlargement Borderline ECG When compared with ECG of 17-DEC-2020 18:54, (unconfirmed) Vent. rate has decreased BY 37 BPM Confirmed by Rickey Valles ([id number]) on 12/18/2020 3:08:34 PM Referred By: REFERRED SELF Confirmed By:Rickey Valles
--- NOTE | 2020-12-18 15:13 | Electrocardiogram Report ---
Test Reason : Blood Pressure : / mmHG Vent. Rate : 112 BPM Atrial Rate : 112 BPM P-R Int : 170 ms QRS Dur : 098 ms QT Int : 334 ms P-R-T Axes : 072 048 071 degrees QTc Int : 455 ms Sinus tachycardia Right atrial enlargement Borderline ECG When compared with ECG of 31-OCT-2020 07:19, Vent. rate has increased BY 49 BPM Confirmed by Rickey Valles ([id number]) on 12/18/2020 3:12:48 PM Referred By: REFERRED SELF Confirmed By:Rickey Valles
[2020-12-19] MEDS ORDERED: ASPIRIN 81 MG ECTAB PO SCH (09:00)
[2020-12-19] MEDS ORDERED: lisinopril 2.5 MG TAB PO SCH (09:00)
== END 2020-12-18 15:23 | disposition home or self-care (01) ==
LOC: ED 18:50 → 1E 18:50